=== PATIENT | male | born 1970 ===

== ENCOUNTER 2017-10-05 08:12 | Inpatient (IN) | payer MEDICAID, OTHER ==
[2017-10-05 08:42] VITALS: BMI 35.2
--- NOTE | 2017-10-05 09:40 | C.PDOC ---
History Of Present Illness Patient reports history og alcohol abuse and drinking a lot over the past few months. Patient requesting detox. Patient has recurrent right nose bleed for weeks. Time Seen by Provider: 10/05/17 08:53 Chief Complaint (Nursing): ENT Problem History Per: Patient History/Exam Limitations: language barrier Current Symptoms Are (Timing): Still Present Suicide/Self Injury Attempted (Context): None Severity: Mild Involuntary Hold By: None Recent travel outside of the [place]: No Past Medical History Reviewed: Historical Data, Nursing Documentation, Vital Signs Vital Signs: Last Vital Signs Temp 98.0 F 10/05/17 11:20 Pulse 94 H 10/05/17 11:20 Resp 18 10/05/17 11:20 BP 164/80 H 10/05/17 11:20 Pulse Ox 98 10/05/17 14:21 - Medical History PMH: No Chronic Diseases Other PMH: alcohol abuse Surgical History: No Surg Hx Family History: States: No Known Family Hx - Social History Hx Alcohol Use: Yes Hx Substance Use: No - Immunization History Hx Tetanus Toxoid Vaccination: No Hx Influenza Vaccination: No Hx Pneumococcal Vaccination: No Review Of Systems Constitutional: Positive for: Weakness. Negative for: Fever ENT: Positive for: Nose Discharge (blood from right nare) Cardiovascular: Negative for: Chest Pain Respiratory: Negative for: Shortness of Breath Gastrointestinal: Negative for: Abdominal Pain Skin: Negative for: Rash Neurological: Positive for: Weakness Psych: Positive for: Withdrawal Physical Exam - Physical Exam Appears: No Acute Distress, Unkempt, Other (shaking) Skin: Normal Color, Warm Head: Atraumatic, Normacephalic Nose: Other (dried blood right nare) Tongue: Normal Appearing Lips: Normal Appearing Gingiva: Normal Appearing Chest: Symmetrical Cardiovascular: Rhythm Regular Respiratory: Normal Breath Sounds Gastrointestinal/Abdominal: Normal Exam, No Tenderness Extremity: Normal ROM Neurological/Psych: Oriented x3 Gait: Steady ED Course And Treatment - Laboratory Results Result Diagrams: 10/05/17 10:27 10/05/17 10:27 Lab Interpretation: Abnormal ECG: Interpreted By Me ECG Rhythm: Sinus Rhythm ECG Interpretation: No Acute Changes Rate From EC O2 Sat by Pulse Oximetry: 98 Pulse Ox Interpretation: Normal Progress Note: Treated with IVF NSS x2 liters. Treated with librium 25 mg PO. On re-evaluation patient continues to have tremors Reassessment Condition: Unchanged - Physician Consult Information Physician Contacted: Valentín Gillespie Outcome Of Conversation: admit Disposition Discussed With Dr.: Valentín Gillespie Doctor Will See Patient In The: Hospital - Disposition Disposition: HOSPITALIZED Disposition Time: 13:45 Condition: STABLE Instructions: Alcohol Abuse and Alcoholism (DC), Alcohol Withdrawal (ED) Forms: VTM (Vietnamese) - POA Present On Arrival: None - Clinical Impression Clinical Impression: Alcohol withdrawal, Alcohol abuse Decision To Admit - Pt Status Changed To: Hospital Disposition Of: Inpatient - Admit Certification Admit to Inpatient:: After my assessment, the patient will require hospitalization for at least two midnights. This is because of the severity of symptoms shown, intensity of services needed, and/or the medical risk in this patient being treated as an outpatient. - InPatient: Physician Admission Certification: I certify that this patient requires 2 or more midnights of care for the following reason:: alcohol abuse. Alcohol Withdrawl - . Bed Request Type: Regular Admitting Physician: Valentín Gillespie Patient Diagnosis: Alcohol withdrawal, Alcohol abuse
[2017-10-05 10:43] LABS: INR 1.2; PROTHROMBIN TIME 13.8 SECONDS (9.7-12.2)
[2017-10-05 10:49] LABS: BASO % 0.4 % (0.0-2.0); EOS # 0.1 K/uL (0.0-0.7); EOS % 0.8 % (0.0-4.0); HEMOGLOBIN 14.5 g/dL (12.0-18.0); LYMPH # 0.6 K/uL (1.0-4.3); LYMPH % 5.9 % (20.0-40.0); MEAN CELL VOLUME 96.9 fL (80.0-94.0); MEAN CORPUSCULAR HEMOGLOBIN 34.6 pg (27.0-31.0); MEAN CORPUSCULAR HGB CONC 35.7 g/dL (33.0-37.0); MEAN PLATELET VOLUME 8.4 fL (7.2-11.7); MONO # 0.6 K/uL (0.0-0.8); MONO % 5.4 % (0.0-10.0); NEUT # 8.9 K/uL (1.8-7.0); NEUT % 87.5 % (50.0-75.0); RBC 4.18 Mil/uL (4.40-5.90); RED CELL DISTRIBUTION WIDTH 12.4 % (11.5-14.5); WHITE BLOOD COUNT 10.2 K/uL (4.8-10.8)
[2017-10-05 10:53] LABS: PLATELET COUNT 63 K/uL (130-400)
[2017-10-05] MEDS ORDERED: Sodium Chloride 0.9% 1,000 ML ONE (10:59)
[2017-10-05 11:04] LABS: ALB/GLOB RATIO 1.1 (1.0-2.1); ALBUMIN 4.4 g/dL (3.5-5.0); ALT/SGPT 42 U/L (21-72); AST/SGOT 193 U/L (17-59); BLOOD UREA NITROGEN 5 mg/dL (9-20); CALCIUM 8.9 mg/dl (8.6-10.4); GFR AFRICAN-AMERICAN > 60; GFR NON-AFRICAN AMERICAN > 60; LIPASE 106 U/L (23-300)
[2017-10-05 11:14] LABS: EOSINOPHIL 3 % (0-4); LYMPHOCYTE 5 % (20-40); MONOCYTE 5 % (0-10); NEUTROPHIL 87 % (50-75); TOTAL CELLS COUNTED 100
[2017-10-05 11:15] LABS: PLATELET ESTIMATE DECREASED (NORMAL)
[2017-10-05 11:20] LABS: SQUAMOUS EPITHIAL < 1 /hpf (0-5); URINE BILIRUBIN NEGATIVE (NEGATIVE); URINE BLOOD NEGATIVE (NEGATIVE); URINE CLARITY Clear (Clear); URINE COLOR Amber (YELLOW); URINE GLUCOSE (UA) 1+ mg/dL (Normal); URINE LEUKOCYTE ESTERASE NEG Leu/uL (Negative); URINE NITRATE NEGATIVE (NEGATIVE); URINE PROTEIN 2+ mg/dL (NEGATIVE)
[2017-10-05] MEDS ORDERED: Sodium Chloride 0.9% 1,000 ML IV ONE (11:23)
--- NOTE | 2017-10-05 11:57 | RAD ---
HISTORY: Cough r/o CHF COMPARISON: None available. TECHNIQUE: Chest PA and lateral FINDINGS: Examination limited by habitus. LUNGS: No focal consolidation. Please note that chest x-ray has limited sensitivity for the detection of pulmonary masses. PLEURA: No significant pleural effusion identified. No definite pneumothorax . CARDIOVASCULAR: Heart size appears top normal. OSSEOUS STRUCTURES: Degenerative changes of the spine. VISUALIZED UPPER ABDOMEN: Unremarkable. OTHER FINDINGS: None. IMPRESSION: No focal consolidation identified.
[2017-10-05] MEDS ORDERED: Potassium Chloride 20 mEq ER Tab PO ONE ×3 (14:04→18:00)
--- NOTE | 2017-10-05 14:24 | CP.PCM.HP ---
Addendum entered and electronically signed by Choco Mistry DO 10/05/17 14:45: addition: Hypokalemia currently 3.0; will replete with a total of 80meq today will monitor daily on bloodwork Original Note: <Choco Mistry - Last Filed: 10/05/17 14:38> History of Present Illness - History of Present Illness History of Present Illness: CC: "I want detox" This a 47yo [place] M who is presenting to the ED requesting EtOH detox; the patient states for the past 6 months he has been taking 6 shots of tequila as well as 4-6 beers daily. He has never had EtOH withdrawal seizures to his knowledge, and has never withdrawn before in the past. He states at work yesterday, he developed a nose bleed that would not stop that they sent him home for; denies any loss of consciousness, falling, any obvious signs of trauma , pain, hallucinations (visual/tactile), SOB, abdominal pain, N/V/D, dysuria/ freq/urg, or lower extremity pain swelling PMD: None PMhx: Denies; although has not f/u with MD in many years Allergies: Denies Meds: Denies FamHx: denies Surgeries: Denies Social: works in restaurant, independent in all IADL and ADL; states he drinks as stated above, denies other drug use. Speaks mostly anguillan. Lives with family. Present on Admission - Present on Admission Any Indicators Present on Admission: No History of DVT/PE: No History of Uncontrolled Diabetes: No Urinary Catheter: No Decubitus Ulcer Present: No Past Patient History - Past Social History Smoking Status: Never Smoked - CARDIAC Hx Hypertension: No (denies) - PSYCHIATRIC Hx Substance Use: No - SURGICAL HISTORY Hx Surgeries: No - ANESTHESIA Hx Anesthesia: No Meds Allergies/Adverse Reactions: Allergies Allergy/AdvReac Type Severity Reaction Status Date / Time No Known Allergies Allergy Verified 10/05/17 08:37 Physical Exam - Constitutional Appears: Non-toxic, No Acute Distress (blood dried nares) - Eye Exam Eye Exam: EOMI, PERRL. absent: Scleral icterus - ENT Exam ENT Exam: Mucous Membranes Moist (diaphoretic ) - Neck Exam Neck exam: Positive for: Full Rom. Negative for: Lymphadenopathy - Respiratory Exam Respiratory Exam: Clear to Auscultation Bilateral, NORMAL BREATHING PATTERN. absent: Rales, Rhonchi, Wheezes - Cardiovascular Exam Cardiovascular Exam: REGULAR RHYTHM, +S1, +S2 - GI/Abdominal Exam GI & Abdominal Exam: Normal Bowel Sounds, Soft - Extremities Exam Extremities exam: Positive for: full ROM. Negative for: calf tenderness - Back Exam Back exam: absent: CVA tenderness (L), CVA tenderness (R) - Neurological Exam Neurological exam: Alert, CN II-XII Intact (tremulous, diaphoretic), Oriented x3 , Reflexes Normal - Psychiatric Exam Psychiatric exam: Normal Affect - Skin Skin Exam: Warm Results - Vital Signs Recent Vital Signs: Last Vital Signs Temp 98.0 F 10/05/17 11:20 Pulse 94 H 10/05/17 11:20 Resp 18 10/05/17 11:20 BP 164/80 H 10/05/17 11:20 Pulse Ox 98 10/05/17 14:21 - Labs Result Diagrams: 10/05/17 10:27 10/05/17 10:27 Labs: Laboratory Results - last 24 hr 10/05/17 10/05/17 10/05/17 10:27 10:27 10:27 WBC 10.2 RBC 4.18 L Hgb 14.5 Hct 40.5 MCV 96.9 H MCH 34.6 H MCHC 35.7 RDW 12.4 Plt Count 63 L MPV 8.4 Neut % (Auto) 87.5 H Lymph % (Auto) 5.9 L [place] % (Auto) 5.4 Eos % (Auto) 0.8 Baso % (Auto) 0.4 Neut # (Auto) 8.9 H Lymph # (Auto) 0.6 L [place] # (Auto) 0.6 Eos # (Auto) 0.1 Baso # (Auto) 0.0 Neutrophils % (Manual) 87 H Lymphocytes % (Manual) 5 L Monocytes % (Manual) 5 Eosinophils % (Manual) 3 Platelet Estimate Decreased L RBC Morphology Normal PT 13.8 H INR 1.2 Sodium 138 Potassium 3.0 L Chloride 98 Carbon Dioxide 21 L Anion Gap 22 H BUN 5 L Creatinine 0.4 L Est GFR ( Amer) > 60 Est GFR (Non-Af Amer) > 60 Random Glucose 108 Calcium 8.9 Total Bilirubin 1.0 AST 193 H ALT 42 Alkaline Phosphatase 159 H Total Protein 8.5 H Albumin 4.4 Globulin 4.1 H Albumin/Globulin Ratio 1.1 Lipase 106 Urine Color Urine Clarity Urine pH Ur Specific [place] Urine Protein Urine Glucose (UA) Urine Ketones Urine Blood Urine Nitrate Urine Bilirubin Urine Urobilinogen Ur Leukocyte Esterase Urine WBC (Auto) Urine RBC (Auto) Ur Squamous Epith Cells Hyaline Casts Alcohol, Quantitative 52 H 10/05/17 11:03 WBC RBC Hgb Hct MCV MCH MCHC RDW Plt Count MPV Neut % (Auto) Lymph % (Auto) [place] % (Auto) Eos % (Auto) Baso % (Auto) Neut # (Auto) Lymph # (Auto) [place] # (Auto) Eos # (Auto) Baso # (Auto) Neutrophils % (Manual) Lymphocytes % (Manual) Monocytes % (Manual) Eosinophils % (Manual) Platelet Estimate RBC Morphology PT INR Sodium Potassium Chloride Carbon Dioxide Anion Gap BUN Creatinine Est GFR ( Amer) Est GFR (Non-Af Amer) Random Glucose Calcium Total Bilirubin AST ALT Alkaline Phosphatase Total Protein Albumin Globulin Albumin/Globulin Ratio Lipase Urine Color [place] Urine Clarity Clear Urine pH 5.0 Ur Specific [place] 1.023 Urine Protein 2+ H Urine Glucose (UA) 1+ H Urine Ketones 2+ H Urine Blood Negative Urine Nitrate Negative Urine Bilirubin Negative Urine Urobilinogen 2.0 Ur Leukocyte Esterase Neg Urine WBC (Auto) 2 Urine RBC (Auto) 1 Ur Squamous Epith Cells < 1 Hyaline Casts 3-5 H Alcohol, Quantitative Assessment & Plan - Assessment and Plan (Free Text) Assessment: 47yo M admitted to the hospital for EtOH withdrawal and requesting detox EtOH Withdrawal -Librium Q8H RAMAKRISHNA Taper -Ativan PRN Q3H -Thiamine/Folate Daily -CIWA protocol -patient desires to quit drinking; states drinks 5-6 shots a day as well as 3-4 beers; last drink 24 hours ago -f/u Psych Recs: Dr. Hernandez; thank you for your help Thrombocytopenia 2/2 to EtOH abuse/toxicity -platelets currently 60k; would expect to rise after no EtOH -will monitor daily Prophylaxis -f/u fasting blood work; HgB1C, RPR, Hepatitis Panel, Lipid Panel, mag and phosh -Pepcid PO BID -SCD 2/2 to thrombocytopenia -Heart Healthy Diet -PT/OT eval and treat Case discussed and seen with Dr. Gillespie Decision To Admit - Pt Status Changed To: Hospital Disposition Of: Inpatient - Admit Certification Admit to Inpatient:: After my assessment, the patient will require hospitalization for at least two midnights. This is because of the severity of symptoms shown, intensity of services needed, and/or the medical risk in this patient being treated as an outpatient. - InPatient: Physician Admission Certification:: pt needs more than 2 midnights - . Bed Request Type: Telemetry Admitting Physician: Valentín Gillespie <Valentín Gillespie - Last Filed: 10/05/17 16:29> Results - Vital Signs Recent Vital Signs: Last Vital Signs Temp 98.6 F 10/05/17 15:00 Pulse 94 H 10/05/17 15:00 Resp 18 10/05/17 15:00 BP 167/88 H 10/05/17 15:00 Pulse Ox 98 10/05/17 15:00 - Labs Result Diagrams: 10/05/17 10:27 10/05/17 10:27 Labs: Laboratory Results - last 24 hr 10/05/17 10/05/17 10/05/17 10:27 10:27 10:27 WBC 10.2 RBC 4.18 L Hgb 14.5 Hct 40.5 MCV 96.9 H MCH 34.6 H MCHC 35.7 RDW 12.4 Plt Count 63 L MPV 8.4 Neut % (Auto) 87.5 H Lymph % (Auto) 5.9 L [place] % (Auto) 5.4 Eos % (Auto) 0.8 Baso % (Auto) 0.4 Neut # (Auto) 8.9 H Lymph # (Auto) 0.6 L [place] # (Auto) 0.6 Eos # (Auto) 0.1 Baso # (Auto) 0.0 Neutrophils % (Manual) 87 H Lymphocytes % (Manual) 5 L Monocytes % (Manual) 5 Eosinophils % (Manual) 3 Platelet Estimate Decreased L RBC Morphology Normal PT 13.8 H INR 1.2 Sodium 138 Potassium 3.0 L Chloride 98 Carbon Dioxide 21 L Anion Gap 22 H BUN 5 L Creatinine 0.4 L Est GFR ( Amer) > 60 Est GFR (Non-Af Amer) > 60 Random Glucose 108 Calcium 8.9 Phosphorus Magnesium Total Bilirubin 1.0 AST 193 H ALT 42 Alkaline Phosphatase 159 H Total Protein 8.5 H Albumin 4.4 Globulin 4.1 H Albumin/Globulin Ratio 1.1 Lipase 106 Urine Color Urine Clarity Urine pH Ur Specific [place] Urine Protein Urine Glucose (UA) Urine Ketones Urine Blood Urine Nitrate Urine Bilirubin Urine Urobilinogen Ur Leukocyte Esterase Urine WBC (Auto) Urine RBC (Auto) Ur Squamous Epith Cells Hyaline Casts Urine Opiates Screen Urine Methadone Screen Ur Barbiturates Screen Ur Phencyclidine Scrn Ur Amphetamines Screen U Benzodiazepines Scrn U Oth Cocaine Metabols U Cannabinoids Screen Alcohol, Quantitative 52 H 10/05/17 10/05/17 10/05/17 11:03 15:12 15:15 WBC RBC Hgb Hct MCV MCH MCHC RDW Plt Count MPV Neut % (Auto) Lymph % (Auto) [place] % (Auto) Eos % (Auto) Baso % (Auto) Neut # (Auto) Lymph # (Auto) [place] # (Auto) Eos # (Auto) Baso # (Auto) Neutrophils % (Manual) Lymphocytes % (Manual) Monocytes % (Manual) Eosinophils % (Manual) Platelet Estimate RBC Morphology PT INR Sodium Potassium Chloride Carbon Dioxide Anion Gap BUN Creatinine Est GFR ( Amer) Est GFR (Non-Af Amer) Random Glucose Calcium Phosphorus 3.7 Magnesium 1.9 Total Bilirubin AST ALT Alkaline Phosphatase Total Protein Albumin Globulin Albumin/Globulin Ratio Lipase Urine Color [place] Urine Clarity Clear Urine pH 5.0 Ur Specific [place] 1.023 Urine Protein 2+ H Urine Glucose (UA) 1+ H Urine Ketones 2+ H Urine Blood Negative Urine Nitrate Negative Urine Bilirubin Negative Urine Urobilinogen 2.0 Ur Leukocyte Esterase Neg Urine WBC (Auto) 2 Urine RBC (Auto) 1 Ur Squamous Epith Cells < 1 Hyaline Casts 3-5 H Urine Opiates Screen Negative Urine Methadone Screen Negative Ur Barbiturates Screen Negative Ur Phencyclidine Scrn Negative Ur Amphetamines Screen Negative U Benzodiazepines Scrn Negative U Oth Cocaine Metabols Negative U Cannabinoids Screen Negative Alcohol, Quantitative Attending/Attestation - Attestation I have personally seen and examined this patient.: Yes I have fully participated in the care of the patient.: Yes I have reviewed all pertinent clinical information: Yes Notes (Text): 10/05/17 16:28 Medical attending: Patient was seen and examined by me, agrees the above note by medical staff coordinator. In the emergency room he already received Librium 25. When I came and saw him in hallway to still having some tremors and shakes regularly and so we gave a stat dose of IV Ativan now, working at continue with alcohol CIWAl protocol. Working to keep the patient on when necessary Ativan as needed as well The electrolytes are going to need to be replaced in particular potassium and magnesium. The thrombocytopenia is likely secondary from a history of long drinking as alcohol can be toxic to the bone marrow as well as inhibited the formation of thrombopoietin thank you Valentín Glilespie 10/05/17 16:28
[2017-10-05 15:25] LABS: MAGNESIUM 1.9 mg/dL (1.6-2.3)
[2017-10-05 15:36] LABS: BARBITURATES, UR NEGATIVE (NEGATIVE); BENZODIAZEPINES, UR NEGATIVE (NEGATIVE); OPIATES, UR NEGATIVE (NEGATIVE); PHENCYCLIDINE, UR NEGATIVE (NEGATIVE)
[2017-10-06 07:06] LABS: BASO # 0.1 K/uL (0.0-0.2); BASO % 1.1 % (0.0-2.0); EOS # 0.4 K/uL (0.0-0.7); EOS % 4.9 % (0.0-4.0); LYMPH # 0.9 K/uL (1.0-4.3); LYMPH % 11.2 % (20.0-40.0); MEAN CELL VOLUME 96.4 fL (80.0-94.0); MEAN CORPUSCULAR HEMOGLOBIN 34.3 pg (27.0-31.0); MEAN CORPUSCULAR HGB CONC 35.6 g/dL (33.0-37.0); MEAN PLATELET VOLUME 8.4 fL (7.2-11.7); MONO # 0.5 K/uL (0.0-0.8); MONO % 6.4 % (0.0-10.0); NEUT # 5.9 K/uL (1.8-7.0); NEUT % 76.4 % (50.0-75.0); RBC 4.1 Mil/uL (4.40-5.90); RED CELL DISTRIBUTION WIDTH 12.7 % (11.5-14.5); WHITE BLOOD COUNT 7.7 K/uL (4.8-10.8)
--- NOTE | 2017-10-06 07:12 | CP.PCM.PN ---
Addendum entered and electronically signed by Janett Story 10/06/17 14:23: Hypokalemia on admission resolved Original Note: <Janett Story - Last Filed: 10/06/17 14:22> Subjective - Date & Time of Evaluation Date of Evaluation: 10/06/17 Time of Evaluation: 07:45 - Subjective Subjective: Medicine note progress (Dr. Gillespie' Service) Patient was seen and examined at bedside. Patient states that he feels better. Patient admits to mild substernal chest pain but denies SOB, palpitations, dizziness, fever, chills, nausea, vomiting, abdominal pain, diarrhea, visual hallucination and auditory hallucination. Objective - Vital Signs/Intake and Output Vital Signs (last 24 hours): Temp Pulse Resp BP Pulse Ox 97.9 F 87 20 153/84 H 97 10/06/17 00:00 10/06/17 00:00 10/06/17 00:00 10/06/17 00:00 10/06/17 00:00 Intake and Output: 10/06/17 10/06/17 06:59 18:59 Intake Total 180 Balance 180 - Medications Medications: Current Medications Acetaminophen (Tylenol 325mg Tab) 650 mg PO Q6 PRN PRN Reason: Fever >100.4 F Chlordiazepoxide (Librium) 25 mg PO Q6H [facility] PRN Reason: Taper Stop: 10/08/17 14:03 Last Admin: 10/06/17 01:40 Dose: 25 mg Famotidine (Pepcid) 20 mg PO BID [facility] Last Admin: 10/05/17 17:46 Dose: 20 mg Folic Acid (Folic Acid) 1 mg PO DAILY [facility] Ibuprofen (Motrin Tab) 400 mg PO Q6 PRN PRN Reason: Pain, Mild (1-3) Ondansetron HCl (Zofran Inj) 4 mg IVP Q6 PRN PRN Reason: Nausea/Vomiting Thiamine HCl (Vitamin B1 Tab) 100 mg PO DAILY [facility] - Labs Labs: 10/05/17 10:27 10/05/17 10:27 PT 13.8 SECONDS (9.7-12.2) H 10/05/17 10:27 INR 1.2 10/05/17 10:27 - Constitutional Appears: Well, No Acute Distress - Head Exam Head Exam: ATRAUMATIC, NORMAL INSPECTION - Eye Exam Eye Exam: EOMI - Respiratory Exam Respiratory Exam: Clear to Ausculation Bilateral, NORMAL BREATHING PATTERN. absent: Prolonged Expiratory Phase, Wheezes - Cardiovascular Exam Cardiovascular Exam: REGULAR RHYTHM, +S1, +S2 - GI/Abdominal Exam GI & Abdominal Exam: Soft, Normal Bowel Sounds. absent: Distended, Firm, Guarding, Rigid, Tenderness - Extremities Exam Extremities Exam: Normal Inspection. absent: Calf Tenderness, Pedal Edema - Neurological Exam Neurological Exam: Alert, Awake, Oriented x3 Additional comments: Tremulous - Psychiatric Exam Psychiatric exam: Anxious - Skin Skin Exam: Normal Color Assessment and Plan (1) Alcohol withdrawal Assessment & Plan: Psychiatry Consult, Dr. Hernandez---> Help appreciated * Management as per recommendation * Ativan taper * Ativan 1mg PO q6 * Imodium 2mg PO q8h prn for symptoms of diarrhea * Zofran 4mg PO Q8H prn for nausea Management: -WA protocol -Folic 1 tab PO daily -Thiamine 100mg PO daily - Monitor withdrawal symptoms - UDS: Negative Status: Acute (2) Chest pain Assessment & Plan: Resolved EKG: Sinus Tachy with T-wave inversion lead III Troponin negative X1, F/U 2nd troponin Hold aspirin due to Thrombocytopneia Status: Acute (3) Thrombocytopenia Assessment & Plan: On admission 63-50L Continue to monitor, if no improvement by the time for discharge, recommendation for hematology and oncology consult H/H stable; no sign of active bleeding Status: Acute (4) Encounter for screening and preventative care Assessment & Plan: HgbA1C: 5.4 Lipid panel: TGL: 110, Cholesterol: 237, LDL: 114 and HDL: 95 Hepatitis and HIV: Negative Awaiting RPR Status: Acute (5) Prophylactic measure Assessment & Plan: GI: Pepcid 20mg PO BID DVT: SCDs, Anticoagualtion contraindicated due to acute thrombocyopneia All plans and management discussed with attending, Dr. Gillespie Status: Acute <Valentín Gillespie - Last Filed: 10/06/17 15:50> Objective - Vital Signs/Intake and Output Vital Signs (last 24 hours): Temp Pulse Resp BP Pulse Ox 98.2 F 89 20 138/85 98 10/06/17 07:52 10/06/17 11:00 10/06/17 07:52 10/06/17 11:00 10/06/17 11:00 Intake and Output: 10/06/17 10/06/17 06:59 18:59 Intake Total 180 450 Balance 180 450 - Medications Medications: Current Medications Acetaminophen (Tylenol 325mg Tab) 650 mg PO Q6 PRN PRN Reason: Fever >100.4 F Famotidine (Pepcid) 20 mg PO BID [facility] Last Admin: 10/06/17 10:32 Dose: 20 mg Folic Acid (Folic Acid) 1 mg PO DAILY [facility] Last Admin: 10/06/17 10:32 Dose: 1 mg Ibuprofen (Motrin Tab) 400 mg PO Q6 PRN PRN Reason: Pain, Mild (1-3) Loperamide HCl (Imodium) 2 mg PO Q8 PRN PRN Reason: Diarrhea Lorazepam (Ativan) 1 mg PO Q6 [facility] PRN Reason: Taper Stop: 10/10/17 10:14 Last Admin: 10/06/17 12:18 Dose: 1 mg Lorazepam (Ativan) 1 mg PO Q4H PRN PRN Reason: Symptoms of alcohol withdrawl Ondansetron HCl (Zofran Inj) 4 mg IVP Q6 PRN PRN Reason: Nausea/Vomiting Ondansetron HCl (Zofran Tab) 4 mg PO Q8 PRN PRN Reason: Nausea/Vomiting Pneumococcal Polyvalent Vaccine (Pneumovax 23 Vaccine) 0.5 ml IM .ONCE ONE Stop: 10/08/17 10:01 Thiamine HCl (Vitamin B1 Tab) 100 mg PO DAILY [facility] Last Admin: 10/06/17 10:32 Dose: 100 mg - Labs Labs: 10/06/17 06:56 10/06/17 06:56 PT 13.8 SECONDS (9.7-12.2) H 10/05/17 10:27 INR 1.2 10/05/17 10:27 Attending/Attestation - Attestation I have personally seen and examined this patient.: Yes I have fully participated in the care of the patient.: Yes I have reviewed all pertinent clinical information, including history, physical exam and plan: Yes Notes (Text): 10/06/17 15:50 Medical attending: Patient was seen and examined by me, agrees the above note by the medical imaging technologist. The patient was not in any acute distress when we saw him on rounds. There was report of chest pain earlier and an EKG was done - I looked at it and it showed NSR, the only change was one lead with a T wave inversion. We will need cardiac enzymes. In the mean time we are continuing with the ativan taper as by psychiatry. When we asked the patient about tremors - he reported it is still there however not as severe as yesterday. He denied abdominal pain, denied diarrhea. He is tolerating a diet So we will follow patient. Replace K and Mg as needed. Thank you very much, Valentín Gillespie
[2017-10-06 07:37] LABS: ALB/GLOB RATIO 1.1 (1.0-2.1); ALBUMIN 4.1 g/dL (3.5-5.0); ALT/SGPT 40 U/L (21-72); AST/SGOT 125 U/L (17-59); BLOOD UREA NITROGEN 6 mg/dL (9-20); CALCIUM 9.5 mg/dl (8.6-10.4); GFR AFRICAN-AMERICAN > 60; GFR NON-AFRICAN AMERICAN > 60; HDL CHOLESTEROL 95 mg/dL (30-70)
[2017-10-06 07:41] LABS: LDL CHOLESTEROL 114 mg/dL (0-129)
[2017-10-06 08:08] LABS: HEPATITIS B SURFACE AG Negative (NEGATIVE)
[2017-10-06 08:17] LABS: HEPATITIS A IGM NEGATIVE (NEGATIVE); HEPATITIS B CORE AB NEGATIVE (NEGATIVE)
[2017-10-06 08:26] LABS: HEPATITIS C ANTIBODY NEGATIVE (NEGATIVE)
--- NOTE | 2017-10-06 12:16 | PCM.PSYCH ---
Initial Psychiatric Evaluation - Initial Psychiatric Evaluation Type of Admission: Voluntary Legal Status: Capacity Chief Complaint (in patient's own words): "I have pain" History of Present Illness and Precipitating Events: Patient is a 47 year old male who is currently employed at a [employer] and lives with his girlfriend and 2 young children. The patient reports that he came to the hospital because he suffered a nose bleed and started feeling unwell at the grocery store. Patient describes left sided substernal pain beginning recently. He reports that he typically drinks 4-5 shots of tequila and 4-6 beers a day beginning 5 years ago. He reports that he stopped drinking 1 week ago and has been not feeling well and experiencing tremors since he has stopped. The patient denies history of seizures. The patient reports that he is also feeling depressed but has no thoughts to kill himself. The patient denies the use of drugs and tobacco but reports that all of his friends use drugs, smoke, and drink. The patient reports that he has never been to detox or rehab. Medical Hx: denies Psych Hx: denies Medications: denies Psych Hospitalization: denies Detox: denies Rehab: denies Fam Psych Hx: denies Fam Substance abuse hx: "my family drinks liquor" Current Medications: Active Medications Generic Name Dose Route Start Last Admin Trade Name Freq PRN Reason Stop Dose Admin Acetaminophen 650 mg 10/05/17 14:01 Tylenol 325mg Tab PO Q6 PRN Fever >100.4 F Famotidine 20 mg 10/05/17 18:00 10/06/17 10:32 Pepcid PO 20 mg BID RAMAKRISHNA Administration Folic Acid 1 mg 10/06/17 10:00 10/06/17 10:32 Folic Acid PO 1 mg DAILY RAMAKRISHNA Administration Ibuprofen 400 mg 10/05/17 14:01 Motrin Tab PO Q6 PRN Pain, Mild (1-3) Loperamide HCl 2 mg 10/06/17 10:04 Imodium PO Q8 PRN Diarrhea Lorazepam 1 mg 10/06/17 10:15 Ativan PO 10/10/17 10:14 Q6 RAMAKRISHNA Taper Lorazepam 1 mg 10/06/17 10:10 Ativan PO Q4H PRN Symptoms of alcohol withdrawl Ondansetron HCl 4 mg 10/05/17 14:01 Zofran Inj IVP Q6 PRN Nausea/Vomiting Ondansetron HCl 4 mg 10/06/17 10:04 Zofran Tab PO Q8 PRN Nausea/Vomiting Thiamine HCl 100 mg 10/06/17 10:00 10/06/17 10:32 Vitamin B1 Tab PO 100 mg DAILY RAMAKRISHNA Administration Past Psychiatric History - Past Psychiatric History Pertinent Medical Hx (Current Medical&Sleep Prob, Allergies): Allergies Allergy/AdvReac Type Severity Reaction Status Date / Time No Known Allergies Allergy Verified 10/05/17 08:37 No Known Home Med 10/05/17 Review of Systems - Gastrointestinal Gastrointestinal: Abdominal Pain Additional comments: substernal pain, left sided - Neurological Neurological: Tremor - Psychiatric Psychiatric: Depression. absent: Auditory Hallucinations, Hallucinations, Suicidal Ideation Mental Status Examination - Personal Presentation Personal Presentation: Looks stated age - Affect Affect: Constricted - Motor Activity Motor Activity: Calm - Reliability in Providing Information Reliability in Providing Information: Fair - Speech Speech: Organized - Mood Mood: Depressed - Formal Thought Process Formal Thought Process: No Impairment - Obsessions/Compulsions Obsessions: None Compulsions: None - Cognitive Functions Orientation: Person, Place, Situation, Time Sensorium: Alert Attention/Concentration: Attentive Abstract Thinking: [place] Estimate of Intelligence: Average Judgement: Intact, as evidence by: Insight regarding need for hospitalization Memory: Recent intact, as evidence by: Ability to recall events of the day, Remote intact, as evidenced by: Abilit to recall sig. life events - Risk Risk: Seizure, Withdrawal - Strength & Assets Inventory Strength & Assets Inventory: Family support, Employment status, Cooperative DSM 5 DX - DSM 5 DSM 5 Diagnosis: Alcohol Use Disorder - Severe Alcohol Withdrawal Major Depression - Recommended/Plan of Treatment Treatment Recommendations and Plan of Treatment: -Alcohol detox with Librium -Vitamins for nutrition -As needed medications -All risks, benefits and alternatives of the meds discussed, and the pt agreed and understood. -Individual therapy daily -Supportive therapy and psychoeducation -MT for abstinence -CBT for relapse prevention -Encourage MAT -Refer to rehab or IOP, and self-help groups -Teach healthy lifestyle methods, i.e. diet, exercise, meditation Prognosis: good with treatment - Smoking Cessation Smoking Cessation Initiated: No Reason for not providing: Pt denies smoking
[2017-10-06 12:29] LABS: CK-MB 0.38 ng/mL (0.0-3.38)
[2017-10-06 17:40] LABS: CK-MB 0.39 ng/mL (0.0-3.38)
[2017-10-07 07:20] LABS: BASO % 0.4 % (0.0-2.0); EOS # 0.2 K/uL (0.0-0.7); EOS % 1.7 % (0.0-4.0); HEMOGLOBIN 14.7 g/dL (12.0-18.0); LYMPH # 0.9 K/uL (1.0-4.3); LYMPH % 8.4 % (20.0-40.0); MEAN CELL VOLUME 95.9 fL (80.0-94.0); MEAN CORPUSCULAR HEMOGLOBIN 34.9 pg (27.0-31.0); MEAN CORPUSCULAR HGB CONC 36.4 g/dL (33.0-37.0); MEAN PLATELET VOLUME 8.9 fL (7.2-11.7); MONO # 0.6 K/uL (0.0-0.8); MONO % 6.2 % (0.0-10.0); NEUT # 8.6 K/uL (1.8-7.0); NEUT % 83.3 % (50.0-75.0); NRBC % 0.1 % (0.0-2.0); PLATELET COUNT 63 K/uL (130-400); RED CELL DISTRIBUTION WIDTH 12.3 % (11.5-14.5); WHITE BLOOD COUNT 10.3 K/uL (4.8-10.8)
[2017-10-07 07:55] LABS: ALBUMIN 4.4 g/dL (3.5-5.0); ALT/SGPT 39 U/L (21-72); AST/SGOT 121 U/L (17-59); BLOOD UREA NITROGEN 7 mg/dL (9-20); CALCIUM 9.8 mg/dl (8.6-10.4); GFR AFRICAN-AMERICAN > 60; GFR NON-AFRICAN AMERICAN > 60; MAGNESIUM 1.5 mg/dL (1.6-2.3)
[2017-10-07 09:32] LABS: EOSINOPHIL 2 % (0-4); LYMPHOCYTE 7 % (20-40); MONOCYTE 5 % (0-10); NEUTROPHIL 86 % (50-75); PLATELET ESTIMATE DECREASED (NORMAL); TOTAL CELLS COUNTED 100
[2017-10-07] MEDS ORDERED: DiphenhydrAMINE 50 mg/ml Inj IVP STA (10:35)
[2017-10-07] MEDS ORDERED: DiphenhydrAMINE 50 mg/ml Inj ONE (10:37)
--- NOTE | 2017-10-07 11:07 | CP.PCM.PN ---
<Cindy Haskins - Last Filed: 10/07/17 11:03> Subjective - Date & Time of Evaluation Date of Evaluation: 10/07/17 Time of Evaluation: 11:04 - Subjective Subjective: Patient seen and examined at bedside. Patient was hallucinating overnight per nursing. He was given ativan at midnight and again this morning around 8am. Patient still agitated and thinks he is in [facility], but he does know his name. Difficult to obtain ROS due to patient status. Objective - Vital Signs/Intake and Output Vital Signs (last 24 hours): Temp Pulse Resp BP Pulse Ox 97.3 F L 104 H 20 158/98 H 97 10/06/17 15:00 10/06/17 15:00 10/06/17 15:00 10/06/17 15:00 10/06/17 15:00 Intake and Output: 10/07/17 10/07/17 06:59 18:59 Intake Total 580 Balance 580 - Medications Medications: Current Medications Acetaminophen (Tylenol 325mg Tab) 650 mg PO Q6 PRN PRN Reason: Fever >100.4 F Chlordiazepoxide (Librium) 50 mg PO TID [facility] Famotidine (Pepcid) 20 mg PO BID [facility] Last Admin: 10/07/17 09:06 Dose: 20 mg Folic Acid (Folic Acid) 1 mg PO DAILY [facility] Last Admin: 10/07/17 09:06 Dose: 1 mg Ibuprofen (Motrin Tab) 400 mg PO Q6 PRN PRN Reason: Pain, Mild (1-3) Loperamide HCl (Imodium) 2 mg PO Q8 PRN PRN Reason: Diarrhea Lorazepam (Ativan) 3 mg IVP Q3H [facility] Ondansetron HCl (Zofran Inj) 4 mg IVP Q6 PRN PRN Reason: Nausea/Vomiting Ondansetron HCl (Zofran Tab) 4 mg PO Q8 PRN PRN Reason: Nausea/Vomiting Pneumococcal Polyvalent Vaccine (Pneumovax 23 Vaccine) 0.5 ml IM .ONCE ONE Stop: 10/08/17 10:01 Sertraline HCl (Zoloft) 25 mg PO DAILY [facility] Last Admin: 10/07/17 09:09 Dose: 25 mg Thiamine HCl (Vitamin B1 Tab) 100 mg PO DAILY [facility] Last Admin: 10/07/17 09:06 Dose: 100 mg Trazodone HCl (Desyrel) 50 mg PO HS RAMAKRISHNA - Labs Labs: 10/07/17 07:05 10/07/17 07:05 PT 13.8 SECONDS (9.7-12.2) H 10/05/17 10:27 INR 1.2 10/05/17 10:27 - Constitutional Appears: Unkempt, Agitated - Head Exam Head Exam: ATRAUMATIC, NORMAL INSPECTION, NORMOCEPHALIC - Eye Exam Eye Exam: EOMI - ENT Exam ENT Exam: Mucous Membranes Moist - Respiratory Exam Respiratory Exam: Clear to Ausculation Bilateral, NORMAL BREATHING PATTERN - Cardiovascular Exam Cardiovascular Exam: RRR, +S1, +S2 - GI/Abdominal Exam GI & Abdominal Exam: Soft, Normal Bowel Sounds. absent: Distended, Tenderness - Extremities Exam Extremities Exam: Normal Inspection - Neurological Exam Neurological Exam: Alert, Awake Additional comments: oriented to person only tremulous - Psychiatric Exam Psychiatric exam: Agitated, Anxious - Skin Skin Exam: Dry, Intact, Normal Color, Warm Assessment and Plan - Assessment and Plan (Free Text) Plan: (1) Alcohol withdrawal Assessment & Plan: Psychiatry Consult, Dr. Hernandez---> Help appreciated * Management as per recommendation * PO ativan changed to 3 mg IV Q3H * Librium 50 mg PO TID added 10/07 * Imodium 2mg PO q8h prn for symptoms of diarrhea * Zofran 4mg PO Q8H prn for nausea Management: -[facility] protocol -Folic 1 tab PO daily -Thiamine 100mg PO daily - Monitor withdrawal symptoms - UDS: Negative Status: Acute (2) Chest pain Assessment & Plan: Resolved EKG: Sinus Tachy with T-wave inversion lead III Troponin negative X1, F/U 2nd troponin Hold aspirin due to Thrombocytopneia Status: Acute (3) Thrombocytopenia Assessment & Plan: On admission 63-50L Continue to monitor, if no improvement by the time for discharge, recommendation for hematology and oncology consult H/H stable; no sign of active bleeding Status: Acute (4) Encounter for screening and preventative care Assessment & Plan: HgbA1C: 5.4 Lipid panel: TGL: 110, Cholesterol: 237, LDL: 114 and HDL: 95 Hepatitis and HIV: Negative RPR nonreactive Status: Acute (5) Prophylactic measure Assessment & Plan: GI: Pepcid 20mg PO BID DVT: SCDs, Anticoagualtion contraindicated due to acute thrombocyopneia All plans and management discussed with attending, Dr. Gillespie Status: Acute <Valentín Gillespie H - Last Filed: 10/07/17 16:19> Objective - Vital Signs/Intake and Output Vital Signs (last 24 hours): Temp Pulse Resp BP Pulse Ox 97.3 F L 104 H 20 158/98 H 97 10/06/17 15:00 10/06/17 15:00 10/06/17 15:00 10/06/17 15:00 10/06/17 15:00 Intake and Output: 10/07/17 10/07/17 06:59 18:59 Intake Total 580 Balance 580 - Medications Medications: Current Medications Acetaminophen (Tylenol 325mg Tab) 650 mg PO Q6 PRN PRN Reason: Fever >100.4 F Chlordiazepoxide (Librium) 50 mg PO TID [facility] Last Admin: 10/07/17 14:02 Dose: Not Given Famotidine (Pepcid) 20 mg PO BID [facility] Last Admin: 10/07/17 09:06 Dose: 20 mg Folic Acid (Folic Acid) 1 mg PO DAILY [facility] Last Admin: 10/07/17 09:06 Dose: 1 mg Ibuprofen (Motrin Tab) 400 mg PO Q6 PRN PRN Reason: Pain, Mild (1-3) Loperamide HCl (Imodium) 2 mg PO Q8 PRN PRN Reason: Diarrhea Lorazepam (Ativan) 3 mg IVP Q3H [facility] Last Admin: 10/07/17 14:03 Dose: Not Given Ondansetron HCl (Zofran Inj) 4 mg IVP Q6 PRN PRN Reason: Nausea/Vomiting Ondansetron HCl (Zofran Tab) 4 mg PO Q8 PRN PRN Reason: Nausea/Vomiting Pneumococcal Polyvalent Vaccine (Pneumovax 23 Vaccine) 0.5 ml IM .ONCE ONE Stop: 10/08/17 10:01 Sertraline HCl (Zoloft) 25 mg PO DAILY [facility] Last Admin: 10/07/17 09:09 Dose: 25 mg Thiamine HCl (Vitamin B1 Tab) 100 mg PO DAILY [facility] Last Admin: 10/07/17 09:06 Dose: 100 mg Trazodone HCl (Desyrel) 50 mg PO HS [facility] - Labs Labs: 10/07/17 07:05 10/07/17 07:05 PT 13.8 SECONDS (9.7-12.2) H 10/05/17 10:27 INR 1.2 10/05/17 10:27 Attending/Attestation - Attestation I have personally seen and examined this patient.: Yes I have fully participated in the care of the patient.: Yes I have reviewed all pertinent clinical information, including history, physical exam and plan: Yes Notes (Text): 10/07/17 16:19 Medical attending: Patient they said was very agitated overnight trying to get out of bed. He had to be restrained and placed on one-to-one. Overnight he did get IV Ativan. And earlier in the morning he again received IV Ativan as well as IM Haldol. When I saw him during rounds with the pesticide use medical coordinator, he was actively trying to get out of bed. He knew his name as well as his birthday. But he said that he was in [facility] when we asked location. He is currently on by mouth Ativan taper. Because of his current situation discontinued that and switch over to IV Ativan. We gave another dose of IV Ativan stat as well as 3 mg of IV Ativan to be given every 3 hours on a scheduled basis. We've also started Librium 50 mg by mouth 3 times a day. Hopefully this regimen will help him and we will avoid having to need to bring the patient to the ICU. As I explained to the staph as well as the nursing her goal is to keep the patient's son and slowly will decrease the Ativan IV over time Thank you very much, Valentín Gillespie
--- NOTE | 2017-10-07 12:02 | CARD ---
APPROVED REPORT EKG Measurement Heart [id number] <Conclusion> Sinus tachycardia Right axis deviation ST & T wave abnormality, consider inferior ischemia Abnormal ECG
--- NOTE | 2017-10-07 12:54 | CARD ---
APPROVED REPORT EKG Measurement Heart [id number] <Conclusion> Normal sinus rhythm Voltage criteria for left ventricular hypertrophy Nonspecific T wave abnormality Abnormal ECG
--- NOTE | 2017-10-07 16:22 | PCM.PYCHPN ---
Psychiatric Progress Note - Psychiatric Progress Note Patient seen today, length of contact: 15 min Patient Chief Complaint: "I am chikis" Problems Identified/Issues Discussed: Patient seen and evaluated, chart reviewed and discussed with the nurse. As per the staff, pt became increasingly disorganized and internally preoccupied. He appears paranoid and delusional. Patient reports withdrawal symptoms including nausea, headaches, cramps and sweating. As per the staff, he was acting bizarre and was jumping on the bed. Patient remained isolated, confined and withdrawn. Patient is compliant with medications and denies any side effects. Symptoms are improving but need more time to stabilize. Support and psychoeducation given. Medication Change: Yes (start haldol) Medical Record Reviewed: Yes Mental Status Examination - Cognitive Function Orientation: Person, Place, Situation, Time Memory: Intact Attention: Poor Concentration: Poor Association: Loose Fund of Knowledge: Poor - Mood Mood: Depressed, Anxious - Affect Affect: Constricted - Speech Speech: Loud - Formal Thought Process Formal Thought Process: Hallucinations, Delusions, Paranoia, Loosening of associations - Suicidal Ideation Suicidal Ideation: No - Homicidal Ideation Homicidal Ideation: No Goal/Treatment Plan - Goal/Treatment Plan Need for Continued Stay: Severe depression anxiety, Severe functional impairment Progress Toward Problem(s) and Goals/Treatment Plan: -Alcohol detox with Librium -Vitamins for nutrition -As needed medications -All risks, benefits and alternatives of the meds discussed, and the pt agreed and understood. -Individual therapy daily -Supportive therapy and psychoeducation -FL for abstinence -CBT for relapse prevention -Encourage MAT -Refer to rehab or IOP, and self-help groups -Teach healthy lifestyle methods, i.e. diet, exercise, meditation -Start Haldol -Start Zoloft -Start trazodone - Smoking Cessation Smoking Cessation Initiated: No
[2017-10-07] MEDS: DiphenhydrAMINE 50 mg/ml Inj IM PRN (20:57)
[2017-10-08] MEDS: DiphenhydrAMINE 50 mg/ml Inj IM PRN (02:49)
--- NOTE | 2017-10-08 04:19 | CP.PCM.PN ---
<Phillips[place]Aure hortonangela E - Last Filed: 10/08/17 04:46> Subjective - Date & Time of Evaluation Date of Evaluation: 10/08/17 Time of Evaluation: 00:40 - Subjective Subjective: Medicine note progress (Dr. Gillespie' Service) Patient was seen and examined at bedside. Patient was mumbling incoherent words and attempting to get out of bed, however, patient is very drowsy. Patient had received IV Ativan as well as IM Haldol (10/07/17) due to agitation. It si very difficult to obtain ROS due to patient status. Objective - Vital Signs/Intake and Output Vital Signs (last 24 hours): Temp Pulse Resp BP Pulse Ox 97.8 F 115 H 20 109/71 98 10/07/17 16:00 10/07/17 16:00 10/07/17 16:00 10/07/17 16:00 10/07/17 16:00 Intake and Output: 10/07/17 10/08/17 18:59 06:59 Intake Total 300 Balance 300 - Medications Medications: Current Medications Acetaminophen (Tylenol 325mg Tab) 650 mg PO Q6 PRN PRN Reason: Fever >100.4 F Chlordiazepoxide (Librium) 50 mg PO TID [facility] Last Admin: 10/07/17 18:12 Dose: 50 mg Diphenhydramine HCl (Benadryl) 50 mg IM Q6 PRN PRN Reason: Agitation Last Admin: 10/08/17 02:49 Dose: 50 mg Famotidine (Pepcid) 20 mg PO BID [facility] Last Admin: 10/07/17 18:14 Dose: 20 mg Folic Acid (Folic Acid) 1 mg PO DAILY [facility] Last Admin: 10/07/17 09:06 Dose: 1 mg Haloperidol Lactate (Haldol) 5 mg IM Q6 PRN PRN Reason: Agitation Ibuprofen (Motrin Tab) 400 mg PO Q6 PRN PRN Reason: Pain, Mild (1-3) Loperamide HCl (Imodium) 2 mg PO Q8 PRN PRN Reason: Diarrhea Lorazepam (Ativan) 3 mg IVP Q3H [facility] Last Admin: 10/08/17 02:48 Dose: 3 mg Ondansetron HCl (Zofran Tab) 4 mg PO Q8 PRN PRN Reason: Nausea/Vomiting Pneumococcal Polyvalent Vaccine (Pneumovax 23 Vaccine) 0.5 ml IM .ONCE ONE Stop: 10/08/17 10:01 Sertraline HCl (Zoloft) 25 mg PO DAILY [facility] Last Admin: 10/07/17 09:09 Dose: 25 mg Thiamine HCl (Vitamin B1 Tab) 100 mg PO DAILY [facility] Last Admin: 10/07/17 09:06 Dose: 100 mg Trazodone HCl (Desyrel) 50 mg PO HS [facility] Last Admin: 10/07/17 21:36 Dose: 50 mg - Labs Labs: 10/07/17 07:05 10/07/17 07:05 PT 13.8 SECONDS (9.7-12.2) H 10/05/17 10:27 INR 1.2 10/05/17 10:27 - Constitutional Appears: Agitated (very mildly ) - Head Exam Head Exam: ATRAUMATIC, NORMAL INSPECTION - ENT Exam ENT Exam: Mucous Membranes Dry - Respiratory Exam Respiratory Exam: Clear to Ausculation Bilateral, NORMAL BREATHING PATTERN - Cardiovascular Exam Cardiovascular Exam: REGULAR RHYTHM, +S1, +S2 - GI/Abdominal Exam GI & Abdominal Exam: Soft, Normal Bowel Sounds - Extremities Exam Extremities Exam: Normal Inspection. absent: Calf Tenderness, Pedal Edema - Neurological Exam Neurological Exam: absent: Alert, Awake, Oriented x3 - Psychiatric Exam Psychiatric exam: Agitated - Skin Skin Exam: Normal Color, Warm Assessment and Plan (1) Alcohol withdrawal Assessment & Plan: Psychiatry Consult, Dr. Hernandez---> Help appreciated * Management as per recommendation * PO ativan changed to 3 mg IV Q3H * Librium 50 mg PO TID added 10/07 * Imodium 2mg PO q8h prn for symptoms of diarrhea * Zofran 4mg PO Q8H prn for nausea * Haldol 5mg IM Q6 prn and Benadryl 50mg IM q6 prn for agitation Management: -[facility] protocol; 1:1 Observation -Folic 1 tab PO daily -Thiamine 100mg PO daily - Monitor withdrawal symptoms - UDS: Negative Status: Acute (2) Chest pain Assessment & Plan: Resolved EKG: Sinus Tachy with T-wave inversion lead III Troponin negative X2 Hold aspirin due to Thrombocytopneia Status: Acute (3) Thrombocytopenia Assessment & Plan: On admission 63-50L Continue to monitor, if no improvement by the time for discharge, recommendation for hematology and oncology consult H/H stable; no sign of active bleeding Status: Acute (4) Encounter for screening and preventative care Assessment & Plan: HgbA1C: 5.4 Lipid panel: TGL: 110, Cholesterol: 237, LDL: 114 and HDL: 95 Hepatitis and HIV: Negative RPR nonreactive Status: Acute (5) Electrolyte imbalance Assessment & Plan: Hypokalemia and hypomagnesemia * Repleted appropriately * Continue to monitor wuth am labs Status: Acute (6) Prophylactic measure Assessment & Plan: GI: Pepcid 20mg PO BID DVT: SCDs, Anticoagualtion contraindicated due to acute thrombocyopneia All plans and management discussed with attending Status: Acute <Valentín Gillespie H - Last Filed: 10/08/17 11:01> Objective - Vital Signs/Intake and Output Vital Signs (last 24 hours): Temp Pulse Resp BP Pulse Ox 99.8 F H 120 H 20 115/80 95 10/08/17 09:25 10/08/17 09:25 10/08/17 09:25 10/08/17 09:25 10/08/17 09:25 Intake and Output: 10/08/17 10/08/17 06:59 18:59 Intake Total 720 Balance 720 - Medications Medications: Current Medications Acetaminophen (Tylenol 325mg Tab) 650 mg PO Q6 PRN PRN Reason: Fever >100.4 F Chlordiazepoxide (Librium) 50 mg PO TID [facility] Last Admin: 10/08/17 09:09 Dose: 50 mg Diphenhydramine HCl (Benadryl) 50 mg IM Q6 PRN PRN Reason: Agitation Last Admin: 10/08/17 02:49 Dose: 50 mg Famotidine (Pepcid) 20 mg PO BID [facility] Last Admin: 10/08/17 09:04 Dose: 20 mg Folic Acid (Folic Acid) 1 mg PO DAILY [facility] Last Admin: 10/08/17 09:04 Dose: 1 mg Haloperidol Lactate (Haldol) 5 mg IM Q6 PRN PRN Reason: Agitation Last Admin: 10/08/17 09:00 Dose: 5 mg Sodium Chloride (Sodium Chloride 0.9%) 1,000 mls @ 100 mls/hr IV .Q10H [facility] Ibuprofen (Motrin Tab) 400 mg PO Q6 PRN PRN Reason: Pain, Mild (1-3) Loperamide HCl (Imodium) 2 mg PO Q8 PRN PRN Reason: Diarrhea Lorazepam (Ativan) 3 mg IVP Q3H [facility] Last Admin: 10/08/17 08:00 Dose: 3 mg Ondansetron HCl (Zofran Tab) 4 mg PO Q8 PRN PRN Reason: Nausea/Vomiting Sertraline HCl (Zoloft) 25 mg PO DAILY [facility] Last Admin: 10/08/17 09:04 Dose: 25 mg Thiamine HCl (Vitamin B1 Tab) 100 mg PO DAILY [facility] Last Admin: 10/08/17 09:04 Dose: 100 mg Trazodone HCl (Desyrel) 50 mg PO HS [facility] Last Admin: 10/07/17 21:36 Dose: 50 mg - Labs Labs: 10/08/17 07:34 10/08/17 07:34 PT 13.8 SECONDS (9.7-12.2) H 10/05/17 10:27 INR 1.2 10/05/17 10:27 Attending/Attestation - Attestation I have personally seen and examined this patient.: Yes I have fully participated in the care of the patient.: Yes I have reviewed all pertinent clinical information, including history, physical exam and plan: Yes Notes (Text): 10/08/17 10:58 Medical attending; Patient was seen and examined by me at 10:30 this morning. He was still having some tremors I could see. He just received a dose of ativan 3mg IV just before I walked in He was awake however he was not able to answer questions. At this time continue with the Ativan 3mg IV q3 and also Librium 50 PO TID Started on IVF with NSS @ 100 cc/hr Continue to monitor the withdrawl symptoms thank you Valentín Gillespie
[2017-10-08] MEDS: Magnesium Sulfate 1 gm in D5W 1 GM/100 ML BAG IVPB SCH ×2 (05:24→05:47)
[2017-10-08 07:56] LABS: BASO # 0.1 K/uL (0.0-0.2); BASO % 0.6 % (0.0-2.0); EOS # 0.4 K/uL (0.0-0.7); EOS % 4.1 % (0.0-4.0); HEMOGLOBIN 16.1 g/dL (12.0-18.0); LYMPH # 1.5 K/uL (1.0-4.3); LYMPH % 16.5 % (20.0-40.0); MEAN CELL VOLUME 96.3 fL (80.0-94.0); MEAN CORPUSCULAR HEMOGLOBIN 34.1 pg (27.0-31.0); MEAN CORPUSCULAR HGB CONC 35.4 g/dL (33.0-37.0); MEAN PLATELET VOLUME 9.3 fL (7.2-11.7); MONO # 0.7 K/uL (0.0-0.8); MONO % 7.7 % (0.0-10.0); NEUT # 6.5 K/uL (1.8-7.0); NEUT % 71.1 % (50.0-75.0); RBC 4.72 Mil/uL (4.40-5.90); RED CELL DISTRIBUTION WIDTH 12.7 % (11.5-14.5); WHITE BLOOD COUNT 9.1 K/uL (4.8-10.8)
[2017-10-08 08:07] LABS: ALBUMIN 4.6 g/dL (3.5-5.0); ALT/SGPT 50 U/L (21-72); AST/SGOT 162 U/L (17-59); BLOOD UREA NITROGEN 17 mg/dL (9-20); CALCIUM 10.9 mg/dl (8.6-10.4); GFR AFRICAN-AMERICAN > 60; GFR NON-AFRICAN AMERICAN > 60; MAGNESIUM 3.1 mg/dL (1.6-2.3)
[2017-10-08] MEDS ORDERED: Pneumococcal 23-Valent Vaccine IM ONE (10:00)
[2017-10-08] MEDS ORDERED: Influenza Vaccine 60 mcg/0.5 mL SYR (4YR UP) IM ONE (10:00)
[2017-10-08] MEDS ORDERED: Dextrose 5%/0.45% NS 1,000 ML IV SCH (11:00)
[2017-10-08] MEDS: Sodium Chloride 0.9% 1,000 ML IV SCH ×2 (11:00→21:59)
--- NOTE | 2017-10-09 00:59 | CP.PCM.PN ---
<JzeAureangela E - Last Filed: 10/09/17 01:03> Subjective - Date & Time of Evaluation Date of Evaluation: 10/09/17 Time of Evaluation: 00:20 - Subjective Subjective: Medicine note progress (Dr. Gillespie' Service) Patient was seen and examined at bedside. Patient still attempting to get out of bed however, patient is very drowsy. Patient remains on 1:1 observation. It is very difficulty to evaluate ROS due to patient's condition. Objective - Vital Signs/Intake and Output Vital Signs (last 24 hours): Temp Pulse Resp BP Pulse Ox 98.7 F 112 H 20 116/75 97 10/08/17 17:17 10/08/17 17:17 10/08/17 17:17 10/08/17 17:17 10/08/17 17:17 Intake and Output: 10/08/17 10/09/17 18:59 06:59 Intake Total 900 Balance 900 - Medications Medications: Current Medications Acetaminophen (Tylenol 325mg Tab) 650 mg PO Q6 PRN PRN Reason: Fever >100.4 F Chlordiazepoxide (Librium) 50 mg PO TID [facility] Last Admin: 10/08/17 18:50 Dose: 50 mg Diphenhydramine HCl (Benadryl) 50 mg IM Q6 PRN PRN Reason: Agitation Last Admin: 10/08/17 02:49 Dose: 50 mg Famotidine (Pepcid) 20 mg PO BID [facility] Last Admin: 10/08/17 18:45 Dose: 20 mg Folic Acid (Folic Acid) 1 mg PO DAILY [facility] Last Admin: 10/08/17 09:04 Dose: 1 mg Haloperidol Lactate (Haldol) 5 mg IM Q6 PRN PRN Reason: Agitation Last Admin: 10/08/17 09:00 Dose: 5 mg Sodium Chloride (Sodium Chloride 0.9%) 1,000 mls @ 100 mls/hr IV .Q10H [facility] Last Admin: 10/08/17 21:59 Dose: 100 mls/hr Ibuprofen (Motrin Tab) 400 mg PO Q6 PRN PRN Reason: Pain, Mild (1-3) Loperamide HCl (Imodium) 2 mg PO Q8 PRN PRN Reason: Diarrhea Lorazepam (Ativan) 3 mg IVP Q3H [facility] Last Admin: 10/08/17 22:00 Dose: 3 mg Ondansetron HCl (Zofran Tab) 4 mg PO Q8 PRN PRN Reason: Nausea/Vomiting Sertraline HCl (Zoloft) 25 mg PO DAILY [facility] Last Admin: 10/08/17 09:04 Dose: 25 mg Thiamine HCl (Vitamin B1 Tab) 100 mg PO DAILY [facility] Last Admin: 10/08/17 09:04 Dose: 100 mg Trazodone HCl (Desyrel) 50 mg PO HS [facility] Last Admin: 10/08/17 21:59 Dose: Not Given - Labs Labs: 10/08/17 07:34 10/08/17 07:34 PT 13.8 SECONDS (9.7-12.2) H 10/05/17 10:27 INR 1.2 10/05/17 10:27 - Constitutional Appears: No Acute Distress - Head Exam Head Exam: ATRAUMATIC - Eye Exam Eye Exam: EOMI - ENT Exam ENT Exam: Mucous Membranes Dry - Respiratory Exam Respiratory Exam: Clear to Ausculation Bilateral, NORMAL BREATHING PATTERN. absent: Rhonchi, Wheezes, Respiratory Distress - Cardiovascular Exam Cardiovascular Exam: REGULAR RHYTHM, +S1, +S2. absent: Murmur - GI/Abdominal Exam GI & Abdominal Exam: Soft, Normal Bowel Sounds. absent: Firm, Guarding, Tenderness - Extremities Exam Extremities Exam: Normal Inspection. absent: Calf Tenderness, Pedal Edema - Neurological Exam Neurological Exam: absent: Awake, Oriented x3 - Psychiatric Exam Psychiatric exam: Agitated, Anxious - Skin Skin Exam: Normal Color Assessment and Plan (1) Alcohol withdrawal Assessment & Plan: Psychiatry Consult, Dr. Hernandez---> Help appreciated * Management as per recommendation * PO ativan changed to 3 mg IV Q3H * Librium 50 mg PO TID added 10/07 * Imodium 2mg PO q8h prn for symptoms of diarrhea * Zofran 4mg PO Q8H prn for nausea * Haldol 5mg IM Q6 prn and Benadryl 50mg IM q6 prn for agitation Management: -[place] protocol; 1:1 Observation -Folic 1 tab PO daily -Thiamine 100mg PO daily - Monitor withdrawal symptoms - UDS: Negative Status: Acute (2) Chest pain Assessment & Plan: Resolved EKG: Sinus Tachy with T-wave inversion lead III (09/29/17) Troponin negative X2 (09/29/17) Hold aspirin due to Thrombocytopneia Status: Acute (3) Thrombocytopenia Assessment & Plan: Improving Continue to monitor, if no improvement by the time for discharge, recommendation for hematology and oncology consult H/H stable; no sign of active bleeding Status: Acute (4) Encounter for screening and preventative care Assessment & Plan: HgbA1C: 5.4 Lipid panel: TGL: 110, Cholesterol: 237, LDL: 114 and HDL: 95 * Lifestyle modification Hepatitis and HIV: Negative RPR nonreactive Status: Acute (5) Electrolyte imbalance Assessment & Plan: Resolved Hypokalemia and hypomagnesemia * Continue to monitor wuth am labs Status: Acute (6) Prophylactic measure Assessment & Plan: GI: Pepcid 20mg PO BID DVT: SCDs, Anticoagualtion contraindicated due to acute thrombocyopneia All plans and management discussed with attending Status: Acute <Valentín Gillespie H - Last Filed: 10/09/17 10:40> Objective - Vital Signs/Intake and Output Vital Signs (last 24 hours): Temp Pulse Resp BP Pulse Ox 98.7 F 112 H 20 116/75 97 10/08/17 17:17 10/08/17 17:17 10/08/17 17:17 10/08/17 17:17 10/08/17 17:17 Intake and Output: 10/09/17 10/09/17 06:59 18:59 Intake Total 900 Balance 900 - Medications Medications: Current Medications Acetaminophen (Tylenol 325mg Tab) 650 mg PO Q6 PRN PRN Reason: Fever >100.4 F Chlordiazepoxide (Librium) 50 mg PO TID [facility] Last Admin: 10/09/17 10:24 Dose: 50 mg Diphenhydramine HCl (Benadryl) 50 mg IM Q6 PRN PRN Reason: Agitation Last Admin: 10/08/17 02:49 Dose: 50 mg Famotidine (Pepcid) 20 mg PO BID [facility] Last Admin: 10/09/17 10:24 Dose: 20 mg Folic Acid (Folic Acid) 1 mg PO DAILY [facility] Last Admin: 10/09/17 10:24 Dose: 1 mg Haloperidol Lactate (Haldol) 5 mg IM Q6 PRN PRN Reason: Agitation Last Admin: 10/08/17 09:00 Dose: 5 mg Sodium Chloride (Sodium Chloride 0.9%) 1,000 mls @ 100 mls/hr IV .Q10H [facility] Last Admin: 10/09/17 10:25 Dose: 100 mls/hr Ibuprofen (Motrin Tab) 400 mg PO Q6 PRN PRN Reason: Pain, Mild (1-3) Loperamide HCl (Imodium) 2 mg PO Q8 PRN PRN Reason: Diarrhea Lorazepam (Ativan) 2 mg IVP Q3H [facility] Ondansetron HCl (Zofran Tab) 4 mg PO Q8 PRN PRN Reason: Nausea/Vomiting Sertraline HCl (Zoloft) 25 mg PO DAILY [facility] Last Admin: 10/09/17 10:24 Dose: 25 mg Thiamine HCl (Vitamin B1 Tab) 100 mg PO DAILY [facility] Last Admin: 10/09/17 10:24 Dose: 100 mg Trazodone HCl (Desyrel) 50 mg PO HS [facility] Last Admin: 10/08/17 21:59 Dose: Not Given - Labs Labs: 10/09/17 07:57 10/09/17 07:57 PT 13.8 SECONDS (9.7-12.2) H 10/05/17 10:27 INR 1.2 10/05/17 10:27 Attending/Attestation - Attestation I have personally seen and examined this patient.: Yes I have fully participated in the care of the patient.: Yes I have reviewed all pertinent clinical information, including history, physical exam and plan: Yes Notes (Text): 10/09/17 10:37 Medical attending: Patient was seen and examined by me. Agree with the above note by the resident Today he was somnolent - however he was awake and able to answer questions. He denied chest pain, denied abdominal pain, denied fever, denied headache. He said he felt tired. He has been on Ativan 3mg IV Q3hrs on a sceduled basis as well as Librium PO 50 TID He finally appears much more calm today - so will decerase to Ativan 2mg IV Q3. Continue Librium as before Valentín Gillespie
[2017-10-09 08:09] LABS: BASO # 0.1 K/uL (0.0-0.2); EOS # 0.5 K/uL (0.0-0.7); EOS % 5.6 % (0.0-4.0); LYMPH # 1.1 K/uL (1.0-4.3); LYMPH % 12.9 % (20.0-40.0); MEAN CELL VOLUME 97.5 fL (80.0-94.0); MEAN CORPUSCULAR HEMOGLOBIN 34.4 pg (27.0-31.0); MEAN CORPUSCULAR HGB CONC 35.2 g/dL (33.0-37.0); MEAN PLATELET VOLUME 8.7 fL (7.2-11.7); MONO # 0.7 K/uL (0.0-0.8); MONO % 8.2 % (0.0-10.0); NEUT # 5.9 K/uL (1.8-7.0); NEUT % 72.3 % (50.0-75.0); NRBC % 0.1 % (0.0-2.0); RBC 4.04 Mil/uL (4.40-5.90); RED CELL DISTRIBUTION WIDTH 12.5 % (11.5-14.5); WHITE BLOOD COUNT 8.2 K/uL (4.8-10.8)
[2017-10-09 08:15] LABS: HEMOGLOBIN 13.9 g/dL (12.0-18.0)
[2017-10-09 08:44] LABS: ALBUMIN 3.8 g/dL (3.5-5.0); ALT/SGPT 60 U/L (21-72); AST/SGOT 170 U/L (17-59); BLOOD UREA NITROGEN 14 mg/dL (9-20); CALCIUM 8.9 mg/dl (8.6-10.4); GFR AFRICAN-AMERICAN > 60; GFR NON-AFRICAN AMERICAN > 60; MAGNESIUM 2.3 mg/dL (1.6-2.3)
[2017-10-09] MEDS: Sodium Chloride 0.9% 1,000 ML IV SCH ×3 (10:25→19:59)
[2017-10-10] MEDS: Sodium Chloride 0.9% 1,000 ML IV SCH ×5 (03:00→22:01)
[2017-10-10 06:18] LABS: BASO # 0.1 K/uL (0.0-0.2); BASO % 0.8 % (0.0-2.0); EOS # 0.4 K/uL (0.0-0.7); EOS % 5.7 % (0.0-4.0); LYMPH # 1.1 K/uL (1.0-4.3); MEAN CELL VOLUME 96.7 fL (80.0-94.0); MEAN CORPUSCULAR HEMOGLOBIN 34.2 pg (27.0-31.0); MEAN CORPUSCULAR HGB CONC 35.4 g/dL (33.0-37.0); MEAN PLATELET VOLUME 8.7 fL (7.2-11.7); MONO # 0.8 K/uL (0.0-0.8); NEUT % 67.5 % (50.0-75.0); RBC 3.8 Mil/uL (4.40-5.90); RED CELL DISTRIBUTION WIDTH 12.5 % (11.5-14.5); WHITE BLOOD COUNT 7.4 K/uL (4.8-10.8)
[2017-10-10 06:47] LABS: ALBUMIN 3.4 g/dL (3.5-5.0); ALT/SGPT 48 U/L (21-72); AST/SGOT 101 U/L (17-59); BLOOD UREA NITROGEN 7 mg/dL (9-20); CALCIUM 8.3 mg/dl (8.6-10.4); GFR AFRICAN-AMERICAN > 60; GFR NON-AFRICAN AMERICAN > 60; MAGNESIUM 1.9 mg/dL (1.6-2.3)
[2017-10-10] MEDS ORDERED: Potassium Chloride 20 mEq ER Tab PO ONE (07:52)
--- NOTE | 2017-10-10 15:15 | CP.PCM.PN ---
<Janett Story E - Last Filed: 10/10/17 15:11> Subjective - Date & Time of Evaluation Date of Evaluation: 10/10/17 Time of Evaluation: 07:30 - Subjective Subjective: Medicine progress note (Dr. Gomez's service) Patient was seen and examined at bedside on 1:1 observation. Patient was more awake today and to answer a few questions. Patient denies any discomfort or any acute issues. Patient is less tremulous. Objective - Vital Signs/Intake and Output Vital Signs (last 24 hours): Temp Pulse Resp BP Pulse Ox 98.6 F 103 H 20 118/67 99 10/10/17 08:21 10/10/17 08:21 10/10/17 08:21 10/10/17 08:21 10/10/17 08:21 Intake and Output: 10/10/17 10/10/17 06:59 18:59 Intake Total 800 920 Balance 800 920 - Medications Medications: Current Medications Acetaminophen (Tylenol 325mg Tab) 650 mg PO Q6 PRN PRN Reason: Fever >100.4 F Chlordiazepoxide (Librium) 50 mg PO TID [facility] Last Admin: 10/10/17 14:47 Dose: 50 mg Diphenhydramine HCl (Benadryl) 50 mg IM Q6 PRN PRN Reason: Agitation Last Admin: 10/08/17 02:49 Dose: 50 mg Famotidine (Pepcid) 20 mg PO BID [facility] Last Admin: 10/10/17 10:33 Dose: 20 mg Folic Acid (Folic Acid) 1 mg PO DAILY [facility] Last Admin: 10/10/17 10:33 Dose: 1 mg Haloperidol Lactate (Haldol) 5 mg IM Q6 PRN PRN Reason: Agitation Last Admin: 10/08/17 09:00 Dose: 5 mg Sodium Chloride (Sodium Chloride 0.9%) 1,000 mls @ 100 mls/hr IV .Q10H [facility] Last Admin: 10/10/17 06:04 Dose: 100 mls/hr Ibuprofen (Motrin Tab) 400 mg PO Q6 PRN PRN Reason: Pain, Mild (1-3) Loperamide HCl (Imodium) 2 mg PO Q8 PRN PRN Reason: Diarrhea Lorazepam (Ativan) 1 mg IVP Q6H [facility] Last Admin: 10/10/17 14:28 Dose: Not Given Ondansetron HCl (Zofran Tab) 4 mg PO Q8 PRN PRN Reason: Nausea/Vomiting Sertraline HCl (Zoloft) 25 mg PO DAILY [facility] Last Admin: 10/10/17 10:33 Dose: 25 mg Thiamine HCl (Vitamin B1 Tab) 100 mg PO DAILY [facility] Last Admin: 10/10/17 10:33 Dose: 100 mg Trazodone HCl (Desyrel) 50 mg PO [facility] Last Admin: 10/09/17 21:12 Dose: 50 mg - Labs Labs: 10/10/17 06:14 10/10/17 06:14 PT 13.8 SECONDS (9.7-12.2) H 10/05/17 10:27 INR 1.2 10/05/17 10:27 - Constitutional Appears: No Acute Distress - Head Exam Head Exam: ATRAUMATIC - Eye Exam Eye Exam: EOMI, Normal appearance - ENT Exam ENT Exam: Mucous Membranes Moist - Respiratory Exam Respiratory Exam: Clear to Ausculation Bilateral, NORMAL BREATHING PATTERN. absent: Rales, Rhonchi, Wheezes, Respiratory Distress - Cardiovascular Exam Cardiovascular Exam: REGULAR RHYTHM, +S1, +S2. absent: Murmur - GI/Abdominal Exam GI & Abdominal Exam: Soft, Normal Bowel Sounds. absent: Distended, Firm, Guarding, Rigid, Tenderness - Extremities Exam Extremities Exam: Normal Inspection. absent: Calf Tenderness, Pedal Edema - Neurological Exam Neurological Exam: Awake - Psychiatric Exam Psychiatric exam: Normal Affect - Skin Skin Exam: Normal Color Assessment and Plan (1) Alcohol withdrawal Assessment & Plan: Psychiatry Consult, Dr. Hernandez---> Help appreciated * Management as per recommendation * Ativan 3 mg IV Q3H changed to 1mg IV Q6H (10/10/17) * Librium 50 mg PO TID added 10/07 * Imodium 2mg PO q8h prn for symptoms of diarrhea * Zofran 4mg PO Q8H prn for nausea * Haldol 5mg IM Q6 prn and Benadryl 50mg IM q6 prn for agitation Management: -[facility] protocol; 1:1 Observation -Folic 1 tab PO daily -Thiamine 100mg PO daily - Monitor withdrawal symptoms - UDS: Negative Status: Acute (2) Depression Assessment & Plan: Psychiatry Consult, Dr. Hernandez---> Help appreciated * Management as per recommendation * Zoloft 25mg PO daily Status: Acute (3) Chest pain Assessment & Plan: Resolved EKG: Sinus Tachy with T-wave inversion lead III (09/29/17) Troponin negative X2 (09/29/17) Hold aspirin due to Thrombocytopneia Status: Acute (4) Thrombocytopenia Assessment & Plan: Improving Continue to monitor, if no improvement by the time for discharge, recommendation for hematology and oncology consult H/H stable; no sign of active bleeding Status: Acute (5) Encounter for screening and preventative care Assessment & Plan: HgbA1C: 5.4 Lipid panel: TGL: 110, Cholesterol: 237, LDL: 114 and HDL: 95 * Lifestyle modification Hepatitis and HIV: Negative RPR nonreactive Status: Acute (6) Electrolyte imbalance Assessment & Plan: Improving Hypokalemia and hypomagnesemia * Continue to monitor wuth am labs Status: Acute (7) Prophylactic measure Assessment & Plan: GI: Pepcid 20mg PO BID DVT: SCDs, Anticoagualtion contraindicated due to acute thrombocyopneia All plans and management discussed with attending, Dr. Gomez Status: Acute <Massiel Gomez - Last Filed: 10/11/17 13:17> Objective - Vital Signs/Intake and Output Vital Signs (last 24 hours): Temp Pulse Resp BP Pulse Ox 98.2 F 75 20 109/65 96 10/11/17 08:10 10/11/17 08:10 10/11/17 08:10 10/11/17 08:10 10/11/17 08:10 Intake and Output: 10/11/17 10/11/17 06:59 18:59 Intake Total 1200 900 Balance 1200 900 - Medications Medications: Current Medications Acetaminophen (Tylenol 325mg Tab) 650 mg PO Q6 PRN PRN Reason: Fever >100.4 F Chlordiazepoxide (Librium) 50 mg PO TID [facility] Last Admin: 10/11/17 11:47 Dose: 50 mg Diphenhydramine HCl (Benadryl) 50 mg IM Q6 PRN PRN Reason: Agitation Last Admin: 10/08/17 02:49 Dose: 50 mg Famotidine (Pepcid) 20 mg PO BID [facility] Last Admin: 10/11/17 11:42 Dose: 20 mg Folic Acid (Folic Acid) 1 mg PO DAILY [facility] Last Admin: 10/11/17 11:42 Dose: 1 mg Haloperidol Lactate (Haldol) 5 mg IM Q6 PRN PRN Reason: Agitation Last Admin: 10/08/17 09:00 Dose: 5 mg Ibuprofen (Motrin Tab) 400 mg PO Q6 PRN PRN Reason: Pain, Mild (1-3) Loperamide HCl (Imodium) 2 mg PO Q8 PRN PRN Reason: Diarrhea Lorazepam (Ativan) 1 mg IVP Q6H PRN PRN Reason: Symptoms of alcohol withdrawl Ondansetron HCl (Zofran Tab) 4 mg PO Q8 PRN PRN Reason: Nausea/Vomiting Sertraline HCl (Zoloft) 25 mg PO DAILY [facility] Last Admin: 10/11/17 11:42 Dose: 25 mg Thiamine HCl (Vitamin B1 Tab) 100 mg PO DAILY [facility] Last Admin: 10/11/17 11:42 Dose: 100 mg Trazodone HCl (Desyrel) 50 mg PO HS [facility] Last Admin: 10/10/17 22:01 Dose: 50 mg - Labs Labs: 10/11/17 06:42 10/11/17 06:42 PT 13.8 SECONDS (9.7-12.2) H 10/05/17 10:27 INR 1.2 10/05/17 10:27 Attending/Attestation - Attestation I have personally seen and examined this patient.: Yes I have fully participated in the care of the patient.: Yes I have reviewed all pertinent clinical information, including history, physical exam and plan: Yes Notes (Text): Seen and examined.Awake and oriented,not confused less agitated.d/w RN,We will observe Off Mitten reduce the dose of Ativan,continue other meds,follow with psychiatry d/w the resident. I agree with the documentation of the assessment and the plan
[2017-10-11 06:57] LABS: BASO % 0.7 % (0.0-2.0); EOS # 0.4 K/uL (0.0-0.7); EOS % 6.9 % (0.0-4.0); HEMOGLOBIN 12.7 g/dL (12.0-18.0); LYMPH # 0.9 K/uL (1.0-4.3); LYMPH % 13.3 % (20.0-40.0); MEAN CELL VOLUME 95.8 fL (80.0-94.0); MEAN CORPUSCULAR HEMOGLOBIN 34.3 pg (27.0-31.0); MEAN CORPUSCULAR HGB CONC 35.8 g/dL (33.0-37.0); MEAN PLATELET VOLUME 8.4 fL (7.2-11.7); MONO # 0.7 K/uL (0.0-0.8); MONO % 11.4 % (0.0-10.0); NEUT # 4.4 K/uL (1.8-7.0); NEUT % 67.7 % (50.0-75.0); RBC 3.69 Mil/uL (4.40-5.90); RED CELL DISTRIBUTION WIDTH 12.6 % (11.5-14.5); WHITE BLOOD COUNT 6.5 K/uL (4.8-10.8)
[2017-10-11 07:20] LABS: ALBUMIN 3.4 g/dL (3.5-5.0); ALT/SGPT 42 U/L (21-72); AST/SGOT 96 U/L (17-59); BLOOD UREA NITROGEN 4 mg/dL (9-20); CALCIUM 8.8 mg/dl (8.6-10.4); GFR AFRICAN-AMERICAN > 60; GFR NON-AFRICAN AMERICAN > 60; MAGNESIUM 1.8 mg/dL (1.6-2.3)
[2017-10-11] MEDS: Sodium Chloride 0.9% 1,000 ML IV SCH (09:00)
[2017-10-11] MEDS ORDERED: Magnesium Sulfate 1 gm in D5W 1 GM/100 ML BAG IVPB ONE (09:28)
[2017-10-11] MEDS ORDERED: Potassium Chloride 20 mEq/15 ml LIQ UD PO ONE (09:29)
--- NOTE | 2017-10-11 10:26 | CP.PCM.PN ---
<JezAureangela Dave - Last Filed: 10/11/17 15:51> Subjective - Date & Time of Evaluation Date of Evaluation: 10/11/17 Time of Evaluation: 07:05 - Subjective Subjective: Medicine progress note (Dr. Gomez's service) Patient was seen and examined at bedside, remains on 1:1 observation. Patient was more awake today and to answer a few questions; patient was oriented to location and person. Patient denies any discomfort or any acute issues. Patient is less tremulous. Objective - Vital Signs/Intake and Output Vital Signs (last 24 hours): Temp Pulse Resp BP Pulse Ox 98.2 F 75 20 109/65 96 10/11/17 08:10 10/11/17 08:10 10/11/17 08:10 10/11/17 08:10 10/11/17 08:10 Intake and Output: 10/11/17 10/11/17 06:59 18:59 Intake Total 1200 900 Balance 1200 900 - Medications Medications: Current Medications Acetaminophen (Tylenol 325mg Tab) 650 mg PO Q6 PRN PRN Reason: Fever >100.4 F Chlordiazepoxide (Librium) 50 mg PO TID [facility] Last Admin: 10/10/17 18:53 Dose: 50 mg Diphenhydramine HCl (Benadryl) 50 mg IM Q6 PRN PRN Reason: Agitation Last Admin: 10/08/17 02:49 Dose: 50 mg Famotidine (Pepcid) 20 mg PO BID [facility] Last Admin: 10/10/17 18:53 Dose: 20 mg Folic Acid (Folic Acid) 1 mg PO DAILY [facility] Last Admin: 10/10/17 10:33 Dose: 1 mg Haloperidol Lactate (Haldol) 5 mg IM Q6 PRN PRN Reason: Agitation Last Admin: 10/08/17 09:00 Dose: 5 mg Sodium Chloride (Sodium Chloride 0.9%) 1,000 mls @ 100 mls/hr IV .Q10H [facility] Last Admin: 10/10/17 22:01 Dose: Not Given Potassium Chloride (Potassium Chloride 20 Meq/100 Ml) 20 meq in 100 mls @ 50 mls/hr IVPB ONCE ONE Stop: 10/11/17 11:27 Ibuprofen (Motrin Tab) 400 mg PO Q6 PRN PRN Reason: Pain, Mild (1-3) Loperamide HCl (Imodium) 2 mg PO Q8 PRN PRN Reason: Diarrhea Lorazepam (Ativan) 1 mg IVP Q6H PRN PRN Reason: Symptoms of alcohol withdrawl Ondansetron HCl (Zofran Tab) 4 mg PO Q8 PRN PRN Reason: Nausea/Vomiting Sertraline HCl (Zoloft) 25 mg PO DAILY [facility] Last Admin: 10/10/17 10:33 Dose: 25 mg Thiamine HCl (Vitamin B1 Tab) 100 mg PO DAILY [facility] Last Admin: 10/10/17 10:33 Dose: 100 mg Trazodone HCl (Desyrel) 50 mg PO HS [facility] Last Admin: 10/10/17 22:01 Dose: 50 mg - Labs Labs: 10/11/17 06:42 10/11/17 06:42 PT 13.8 SECONDS (9.7-12.2) H 10/05/17 10:27 INR 1.2 10/05/17 10:27 - Constitutional Appears: Well, No Acute Distress - Head Exam Head Exam: ATRAUMATIC, NORMAL INSPECTION - Eye Exam Eye Exam: EOMI, Normal appearance - ENT Exam ENT Exam: Mucous Membranes Dry - Respiratory Exam Respiratory Exam: Clear to Ausculation Bilateral, NORMAL BREATHING PATTERN. absent: Rhonchi, Wheezes, Respiratory Distress - Cardiovascular Exam Cardiovascular Exam: REGULAR RHYTHM, +S1, +S2 - GI/Abdominal Exam GI & Abdominal Exam: Soft, Normal Bowel Sounds. absent: Distended, Firm, Guarding, Rigid, Tenderness - Extremities Exam Extremities Exam: Normal Inspection. absent: Calf Tenderness, Pedal Edema - Neurological Exam Neurological Exam: Awake - Psychiatric Exam Psychiatric exam: Anxious - Skin Skin Exam: Normal Color Assessment and Plan (1) Alcohol withdrawal Assessment & Plan: Psychiatry Consult, Dr. Hernandez---> Help appreciated * Management as per recommendation * Ativan 3 mg IV Q3H changed to 1mg IV Q6H PRN (10/10/17) * Librium 50 mg PO TID added 10/07 * Imodium 2mg PO q8h prn for symptoms of diarrhea * Zofran 4mg PO Q8H prn for nausea * Haldol 5mg IM Q6 prn and Benadryl 50mg IM q6 prn for agitation Management: -[facility] protocol; 1:1 Observation -Folic 1 tab PO daily -Thiamine 100mg PO daily - Monitor withdrawal symptoms - UDS: Negative Status: Acute (2) Depression Assessment & Plan: Psychiatry Consult, Dr. Hernandez---> Help appreciated * Management as per recommendation * Zoloft 25mg PO daily Status: Acute (3) Chest pain Assessment & Plan: Resolved EKG: Sinus Tachy with T-wave inversion lead III (09/29/17) Troponin negative X2 (09/29/17) Hold aspirin due to Thrombocytopenia Status: Acute (4) Thrombocytopenia Assessment & Plan: Improving Continue to monitor, if no improvement by the time for discharge, recommendation for hematology and oncology consult H/H stable; no sign of active bleeding Status: Acute (5) Encounter for screening and preventative care Assessment & Plan: HgbA1C: 5.4 Lipid panel: TGL: 110, Cholesterol: 237, LDL: 114 and HDL: 95 * Lifestyle modification Hepatitis and HIV: Negative RPR nonreactive Status: Acute (6) Electrolyte imbalance Assessment & Plan: Intermittent improvement Hypokalemia and hypomagnesemia * Repleted appropriately * Continue to monitor with am labs Status: Acute (7) Prophylactic measure Assessment & Plan: GI: Pepcid 20mg PO BID DVT: SCDs, Anticoagualtion contraindicated due to acute thrombocyopneia Disposition: Patient not stable for transfer and admit to inpatient psychiatry All plans and management discussed with attending, Dr. Gomez Status: Acute <Massiel Gomez - Last Filed: 10/11/17 18:29> Objective - Vital Signs/Intake and Output Vital Signs (last 24 hours): Temp Pulse Resp BP Pulse Ox 99 F 86 20 113/75 93 L 10/11/17 15:53 10/11/17 15:53 10/11/17 15:53 10/11/17 15:53 10/11/17 15:53 Intake and Output: 10/11/17 10/11/17 06:59 18:59 Intake Total 1200 900 Output Total 350 Balance 1200 550 - Medications Medications: Current Medications Acetaminophen (Tylenol 325mg Tab) 650 mg PO Q6 PRN PRN Reason: Fever >100.4 F Chlordiazepoxide (Librium) 50 mg PO TID [facility] Last Admin: 10/11/17 17:45 Dose: Not Given Diphenhydramine HCl (Benadryl) 50 mg IM Q6 PRN PRN Reason: Agitation Last Admin: 10/08/17 02:49 Dose: 50 mg Famotidine (Pepcid) 20 mg PO BID [facility] Last Admin: 10/11/17 17:45 Dose: Not Given Folic Acid (Folic Acid) 1 mg PO DAILY [facility] Last Admin: 10/11/17 11:42 Dose: 1 mg Haloperidol Lactate (Haldol) 5 mg IM Q6 PRN PRN Reason: Agitation Last Admin: 10/08/17 09:00 Dose: 5 mg Ibuprofen (Motrin Tab) 400 mg PO Q6 PRN PRN Reason: Pain, Mild (1-3) Loperamide HCl (Imodium) 2 mg PO Q8 PRN PRN Reason: Diarrhea Lorazepam (Ativan) 1 mg IVP Q6H PRN PRN Reason: Symptoms of alcohol withdrawl Ondansetron HCl (Zofran Tab) 4 mg PO Q8 PRN PRN Reason: Nausea/Vomiting Sertraline HCl (Zoloft) 25 mg PO DAILY [facility] Last Admin: 10/11/17 11:42 Dose: 25 mg Thiamine HCl (Vitamin B1 Tab) 100 mg PO DAILY [facility] Last Admin: 10/11/17 11:42 Dose: 100 mg Trazodone HCl (Desyrel) 50 mg PO HS [facility] Last Admin: 10/10/17 22:01 Dose: 50 mg - Labs Labs: 10/11/17 06:42 10/11/17 06:42 PT 13.8 SECONDS (9.7-12.2) H 10/05/17 10:27 INR 1.2 10/05/17 10:27 Attending/Attestation - Attestation I have personally seen and examined this patient.: Yes I have fully participated in the care of the patient.: Yes I have reviewed all pertinent clinical information, including history, physical exam and plan: Yes Notes (Text): Patient is with mitten restrain, lying on bed ,not agitated seen and examined,denies pain d/w Resident I agree with the documentation of the assessment and the plan We will change Ativan to PRN observe with 1:1 sitter and follow psychiatrist recommendation 10/11/17 18:26
--- NOTE | 2017-10-11 21:20 | PCM.PYCHPN ---
Psychiatric Progress Note - Psychiatric Progress Note Patient seen today, length of contact: 15 min Patient Chief Complaint: "I m chikis" Problems Identified/Issues Discussed: Patient seen and evaluated, chart reviewed and discussed with the nurse. As per the staff, pt appeared more organized and less internally preoccupied than before. He is less irritable and less agitated. He still appears paranoid and delusional. He still has mittens on his hands and h is on 1:1. Patient remained isolated, confined and withdrawn. Patient is compliant with medications and denies any side effects. Symptoms are improving but need more time to stabilize. Support and psychoeducation given. Medication Change: Yes (haldol) Medical Record Reviewed: Yes Mental Status Examination - Cognitive Function Orientation: Person, Place, Situation, Time Memory: Intact Attention: Poor Concentration: Poor Association: Loose Fund of Knowledge: Poor - Mood Mood: Depressed - Affect Affect: Broad - Speech Speech: Loud - Formal Thought Process Formal Thought Process: Hallucinations, Delusions, Paranoia, Loosening of associations - Suicidal Ideation Suicidal Ideation: No - Homicidal Ideation Homicidal Ideation: No Goal/Treatment Plan - Goal/Treatment Plan Need for Continued Stay: Severe depression anxiety, Severe functional impairment Progress Toward Problem(s) and Goals/Treatment Plan: -Alcohol detox with Librium -Vitamins for nutrition -As needed medications -All risks, benefits and alternatives of the meds discussed, and the pt agreed and understood. -Individual therapy daily -Supportive therapy and psychoeducation -[place] for abstinence -CBT for relapse prevention -Encourage MAT -Refer to rehab or IOP, and self-help groups -Teach healthy lifestyle methods, i.e. diet, exercise, meditation - haldol 5 mg PO BID -Zoloft 50 mg PO Ddaily - Trazodont 50 mg - Smoking Cessation Smoking Cessation Initiated: No
[2017-10-12 08:25] LABS: BASO # 0.1 K/uL (0.0-0.2); BASO % 0.7 % (0.0-2.0); EOS # 0.4 K/uL (0.0-0.7); EOS % 6.2 % (0.0-4.0); HEMOGLOBIN 12.7 g/dL (12.0-18.0); LYMPH # 0.9 K/uL (1.0-4.3); LYMPH % 13.1 % (20.0-40.0); MEAN CELL VOLUME 95.9 fL (80.0-94.0); MEAN CORPUSCULAR HEMOGLOBIN 34.6 pg (27.0-31.0); MEAN PLATELET VOLUME 8.6 fL (7.2-11.7); MONO # 0.7 K/uL (0.0-0.8); MONO % 9.5 % (0.0-10.0); NEUT # 5.1 K/uL (1.8-7.0); NEUT % 70.5 % (50.0-75.0); RBC 3.68 Mil/uL (4.40-5.90); RED CELL DISTRIBUTION WIDTH 12.4 % (11.5-14.5); WHITE BLOOD COUNT 7.3 K/uL (4.8-10.8)
[2017-10-12 08:42] LABS: ALBUMIN 3.2 g/dL (3.5-5.0); ALT/SGPT 38 U/L (21-72); AST/SGOT 81 U/L (17-59); BLOOD UREA NITROGEN 3 mg/dL (9-20); CALCIUM 8.5 mg/dl (8.6-10.4); GFR AFRICAN-AMERICAN > 60; GFR NON-AFRICAN AMERICAN > 60
[2017-10-12] MEDS ORDERED: Potassium Chloride 20 mEq ER Tab PO ONE (09:54)
--- NOTE | 2017-10-12 10:54 | CP.PCM.PN ---
<JezAureangela Dave - Last Filed: 10/12/17 11:18> Subjective - Date & Time of Evaluation Date of Evaluation: 10/12/17 Time of Evaluation: 07:00 - Subjective Subjective: Medicine progress note (Dr. Gomez's service) Patient was seen and examined at bedside. Patient was more awake today and able to answer a few questions; patient was oriented to location and person. Patient reports back discomfort because he has been in bed for a while. Before the encounter, patient was given Ativan for agitation, therefore, patient was quite drowsy, nonetheless, he was able to answer a few questions. Objective - Vital Signs/Intake and Output Vital Signs (last 24 hours): Temp Pulse Resp BP Pulse Ox 97.7 F 78 20 128/75 96 10/12/17 07:53 10/12/17 07:53 10/12/17 07:53 10/12/17 07:53 10/12/17 07:53 Intake and Output: 10/12/17 10/12/17 06:59 18:59 Intake Total 1150 Balance 1150 - Medications Medications: Current Medications Acetaminophen (Tylenol 325mg Tab) 650 mg PO Q6 PRN PRN Reason: Fever >100.4 F Chlordiazepoxide (Librium) 25 mg PO TID [facility] Diphenhydramine HCl (Benadryl) 50 mg IM Q6 PRN PRN Reason: Agitation Last Admin: 10/08/17 02:49 Dose: 50 mg Famotidine (Pepcid) 20 mg PO BID [facility] Last Admin: 10/12/17 08:54 Dose: 20 mg Folic Acid (Folic Acid) 1 mg PO DAILY [facility] Last Admin: 10/12/17 09:57 Dose: Not Given Haloperidol (Haldol) 5 mg PO BID [facility] Last Admin: 10/12/17 09:57 Dose: Not Given Haloperidol Lactate (Haldol) 5 mg IM Q6 PRN PRN Reason: Agitation Last Admin: 10/08/17 09:00 Dose: 5 mg Ibuprofen (Motrin Tab) 400 mg PO Q6 PRN PRN Reason: Pain, Mild (1-3) Last Admin: 10/12/17 08:55 Dose: 400 mg Loperamide HCl (Imodium) 2 mg PO Q8 PRN PRN Reason: Diarrhea Lorazepam (Ativan) 0.5 mg IVP Q6H PRN PRN Reason: Symptoms of alcohol withdrawl Ondansetron HCl (Zofran Tab) 4 mg PO Q8 PRN PRN Reason: Nausea/Vomiting Thiamine HCl (Vitamin B1 Tab) 100 mg PO DAILY [facility] Last Admin: 10/12/17 08:54 Dose: 100 mg - Labs Labs: 10/12/17 08:10 10/12/17 08:10 PT 13.8 SECONDS (9.7-12.2) H 10/05/17 10:27 INR 1.2 10/05/17 10:27 - Constitutional Appears: Well, No Acute Distress - Head Exam Head Exam: ATRAUMATIC, NORMAL INSPECTION - Eye Exam Eye Exam: EOMI, Normal appearance - ENT Exam ENT Exam: Mucous Membranes Dry - Respiratory Exam Respiratory Exam: Clear to Ausculation Bilateral, NORMAL BREATHING PATTERN. absent: Rhonchi, Wheezes - Cardiovascular Exam Cardiovascular Exam: REGULAR RHYTHM, +S1, +S2. absent: Murmur - GI/Abdominal Exam GI & Abdominal Exam: Soft, Normal Bowel Sounds. absent: Distended, Firm, Guarding, Rigid, Tenderness - Extremities Exam Extremities Exam: Normal Inspection. absent: Calf Tenderness, Pedal Edema - Neurological Exam Neurological Exam: Alert - Psychiatric Exam Psychiatric exam: Depressed - Skin Skin Exam: Normal Color Assessment and Plan (1) Alcohol withdrawal Assessment & Plan: Psychiatry Consult, Dr. Hernandez---> Help appreciated * Management as per recommendation * changed to 1mg IV Q6H PRN (10/10/17)---> decreased to 0.5mg IV q6h PRN * Librium 50 mg PO TID added 10/07--> Changed to Librium 25mg PO TID (10/12/17) * Imodium 2mg PO q8h prn for symptoms of diarrhea * Zofran 4mg PO Q8H prn for nausea * Haldol 5mg IM Q6 prn and Benadryl 50mg IM q6 prn and haldol 5mg PO BID for agitation ( Only to be given for severe agitation and aggressive behaviors) Management: -[facility] protocol; 1:1 Observation -Folic 1 tab PO daily -Thiamine 100mg PO daily - Monitor withdrawal symptoms - UDS: Negative Status: Acute (2) Depression Assessment & Plan: Psychiatry Consult, Dr. Hernandez---> Help appreciated Management as per recommendation Zoloft 25mg PO daily Status: Acute (3) Chest pain Assessment & Plan: Resolved EKG: Sinus Tachy with T-wave inversion lead III (09/29/17) Troponin negative X2 (09/29/17) Hold aspirin due to Thrombocytopenia Status: Acute (4) Thrombocytopenia Assessment & Plan: Resolved Continue to monitor with labs H/H stable; no sign of active bleeding Status: Acute (5) Encounter for screening and preventative care Assessment & Plan: HgbA1C: 5.4 Lipid panel: TGL: 110, Cholesterol: 237, LDL: 114 and HDL: 95 * Lifestyle modification Hepatitis and HIV: Negative RPR nonreactive Status: Acute (6) Electrolyte imbalance Assessment & Plan: Intermittent improvement Hypokalemia and hypomagnesemia * Hypomagnesemia resolved * Hypokalemia persists; repleted appropriately * Continue to monitor with am labs Status: Acute (7) Prophylactic measure Assessment & Plan: GI: Pepcid 20mg PO BID DVT: SCDs, acute thrombocyopneia resolved, started lovenox 30mg SC daily. Will continue to monitor platelet counts with labs Disposition: Patient not stable for transfer and admit to inpatient psychiatry All plans and management discussed with attending, Dr. Gomez Status: Acute <Massiel Gomez - Last Filed: 10/12/17 16:19> Objective - Vital Signs/Intake and Output Vital Signs (last 24 hours): Temp Pulse Resp BP Pulse Ox 97.7 F 78 20 128/75 96 10/12/17 07:53 10/12/17 15:55 10/12/17 07:53 10/12/17 15:55 10/12/17 15:55 Intake and Output: 10/12/17 10/12/17 06:59 18:59 Intake Total 1150 Balance 1150 - Medications Medications: Current Medications Acetaminophen (Tylenol 325mg Tab) 650 mg PO Q6 PRN PRN Reason: Fever >100.4 F Chlordiazepoxide (Librium) 25 mg PO TID [facility] Last Admin: 10/12/17 14:04 Dose: 25 mg Diphenhydramine HCl (Benadryl) 50 mg IM Q6 PRN PRN Reason: Agitation Last Admin: 10/08/17 02:49 Dose: 50 mg Enoxaparin Sodium (Lovenox) 40 mg SC DAILY [facility] Last Admin: 10/12/17 11:57 Dose: 40 mg Famotidine (Pepcid) 20 mg PO BID [facility] Last Admin: 10/12/17 11:58 Dose: Not Given Folic Acid (Folic Acid) 1 mg PO DAILY [facility] Last Admin: 10/12/17 09:57 Dose: Not Given Haloperidol (Haldol) 5 mg PO BID [facility] Last Admin: 10/12/17 09:57 Dose: Not Given Haloperidol Lactate (Haldol) 5 mg IM Q6 PRN PRN Reason: Agitation Last Admin: 10/08/17 09:00 Dose: 5 mg Ibuprofen (Motrin Tab) 400 mg PO Q6 PRN PRN Reason: Pain, Mild (1-3) Last Admin: 10/12/17 08:55 Dose: 400 mg Loperamide HCl (Imodium) 2 mg PO Q8 PRN PRN Reason: Diarrhea Lorazepam (Ativan) 0.5 mg IVP Q6H PRN PRN Reason: Symptoms of alcohol withdrawl Ondansetron HCl (Zofran Tab) 4 mg PO Q8 PRN PRN Reason: Nausea/Vomiting Thiamine HCl (Vitamin B1 Tab) 100 mg PO DAILY [facility] Last Admin: 10/12/17 12:07 Dose: Not Given - Labs Labs: 10/12/17 08:10 10/12/17 08:10 PT 13.8 SECONDS (9.7-12.2) H 10/05/17 10:27 INR 1.2 10/05/17 10:27 Attending/Attestation - Attestation I have personally seen and examined this patient.: Yes I have fully participated in the care of the patient.: Yes I have reviewed all pertinent clinical information, including history, physical exam and plan: Yes Notes (Text): Patient was seen and examined D/W RN. patient was agitated and pulling line. He was given Ativan on examination he is sleepy but he was able to answer simple questions He was seen by psychiatrist and started on haldol we will reduce the dose of Ativan and taper the dose of Librium PT assessment d/w The resident I agree with the documentation of the assessment and the plan 10/12/17 16:15
[2017-10-12] MEDS: Enoxaparin 40 mg Syringe SC SCH (11:57)
[2017-10-13 08:34] LABS: BASO # 0.1 K/uL (0.0-0.2); BASO % 0.9 % (0.0-2.0); EOS # 0.5 K/uL (0.0-0.7); EOS % 6.7 % (0.0-4.0); HEMOGLOBIN 13.1 g/dL (12.0-18.0); LYMPH % 12.2 % (20.0-40.0); MEAN CELL VOLUME 95.8 fL (80.0-94.0); MEAN CORPUSCULAR HEMOGLOBIN 33.8 pg (27.0-31.0); MEAN CORPUSCULAR HGB CONC 35.2 g/dL (33.0-37.0); MONO # 0.7 K/uL (0.0-0.8); MONO % 9.1 % (0.0-10.0); NEUT # 5.7 K/uL (1.8-7.0); NEUT % 71.1 % (50.0-75.0); NRBC % 0.1 % (0.0-2.0); RBC 3.87 Mil/uL (4.40-5.90); RED CELL DISTRIBUTION WIDTH 12.6 % (11.5-14.5)
[2017-10-13 09:24] LABS: ALBUMIN 3.4 g/dL (3.5-5.0); ALT/SGPT 35 U/L (21-72); AST/SGOT 74 U/L (17-59); BLOOD UREA NITROGEN 5 mg/dL (9-20); CALCIUM 8.8 mg/dl (8.6-10.4); GFR AFRICAN-AMERICAN > 60; GFR NON-AFRICAN AMERICAN > 60; MAGNESIUM 1.9 mg/dL (1.6-2.3)
[2017-10-13] MEDS: Enoxaparin 40 mg Syringe SC SCH (10:13)
--- NOTE | 2017-10-13 13:51 | CP.PCM.PN ---
<Janett Story E - Last Filed: 10/13/17 14:00> Subjective - Date & Time of Evaluation Date of Evaluation: 10/13/17 Time of Evaluation: 07:15 - Subjective Subjective: Medicine progress note (Dr. Gomez's service) Patient was seen and examined at bedside. Patient was more awake today and able to answer a few questions; patient was oriented to location and person. Patient reports that he is doing well. Objective - Vital Signs/Intake and Output Vital Signs (last 24 hours): Temp Pulse Resp BP Pulse Ox 99.9 F H 73 20 128/79 97 10/13/17 07:00 10/13/17 07:00 10/13/17 07:00 10/13/17 07:00 10/13/17 07:00 Intake and Output: 10/13/17 10/13/17 06:59 18:59 Intake Total 300 500 Output Total 350 Balance -50 500 - Medications Medications: Current Medications Acetaminophen (Tylenol 325mg Tab) 650 mg PO Q6 PRN PRN Reason: Fever >100.4 F Chlordiazepoxide (Librium) 10 mg PO TID [facility] Diphenhydramine HCl (Benadryl) 50 mg IM Q6 PRN PRN Reason: Agitation Last Admin: 10/08/17 02:49 Dose: 50 mg Enoxaparin Sodium (Lovenox) 40 mg SC DAILY [facility] Last Admin: 10/13/17 10:13 Dose: 40 mg Famotidine (Pepcid) 20 mg PO BID [facility] Last Admin: 10/13/17 10:12 Dose: 20 mg Folic Acid (Folic Acid) 1 mg PO DAILY [facility] Last Admin: 10/13/17 10:12 Dose: 1 mg Haloperidol (Haldol) 5 mg PO BID [facility] Last Admin: 10/13/17 10:13 Dose: Not Given Haloperidol Lactate (Haldol) 5 mg IM Q6 PRN PRN Reason: Agitation Last Admin: 10/08/17 09:00 Dose: 5 mg Ibuprofen (Motrin Tab) 400 mg PO Q6 PRN PRN Reason: Pain, Mild (1-3) Last Admin: 10/12/17 08:55 Dose: 400 mg Loperamide HCl (Imodium) 2 mg PO Q8 PRN PRN Reason: Diarrhea Lorazepam (Ativan) 0.5 mg IVP Q6H PRN PRN Reason: Symptoms of alcohol withdrawl Ondansetron HCl (Zofran Tab) 4 mg PO Q8 PRN PRN Reason: Nausea/Vomiting Thiamine HCl (Vitamin B1 Tab) 100 mg PO DAILY [facility] Last Admin: 10/13/17 10:12 Dose: 100 mg - Labs Labs: 10/13/17 08:24 10/13/17 08:24 PT 13.8 SECONDS (9.7-12.2) H 10/05/17 10:27 INR 1.2 10/05/17 10:27 - Constitutional Appears: Well, No Acute Distress - Head Exam Head Exam: ATRAUMATIC, NORMAL INSPECTION - Eye Exam Eye Exam: EOMI - ENT Exam ENT Exam: Mucous Membranes Dry - Respiratory Exam Respiratory Exam: Clear to Ausculation Bilateral, NORMAL BREATHING PATTERN. absent: Rhonchi, Wheezes - Cardiovascular Exam Cardiovascular Exam: REGULAR RHYTHM, +S1, +S2. absent: Murmur - GI/Abdominal Exam GI & Abdominal Exam: Soft. absent: Firm, Guarding, Rigid, Tenderness - Extremities Exam Extremities Exam: Normal Inspection. absent: Calf Tenderness, Pedal Edema - Neurological Exam Neurological Exam: Alert, Awake, Oriented x3 - Psychiatric Exam Psychiatric exam: Depressed - Skin Skin Exam: Normal Color Assessment and Plan (1) Alcohol withdrawal Assessment & Plan: Psychiatry Consult, Dr. Hernandez---> Help appreciated * Management as per recommendation * changed to 1mg IV Q6H PRN (10/10/17)---> decreased to 0.5mg IV q6h PRN * Librium 25mg PO TID -----> changed to librium 10mg PO TID (10/13/17) * Imodium 2mg PO q8h prn for symptoms of diarrhea * Zofran 4mg PO Q8H prn for nausea * Haldol 5mg IM Q6 prn and Benadryl 50mg IM q6 prn * Haldol 5mg PO for agitation (Held ) Management: -[facility] protocol; 1:1 Observation -Folic 1 tab PO daily -Thiamine 100mg PO daily -Multivitamins 1 tab po daily - Monitor withdrawal symptoms - UDS: Negative Status: Acute (2) Chest pain Assessment & Plan: Resolved EKG: Sinus Tachy with T-wave inversion lead III (09/29/17) Troponin negative X2 (09/29/17) Hold aspirin due to Thrombocytopenia Status: Acute (3) Thrombocytopenia Assessment & Plan: Resolved Continue to monitor with labs H/H stable; no sign of active bleeding Status: Acute (4) Encounter for screening and preventative care Assessment & Plan: HgbA1C: 5.4 Lipid panel: TGL: 110, Cholesterol: 237, LDL: 114 and HDL: 95 * Lifestyle modification Hepatitis and HIV: Negative RPR nonreactive Status: Acute (5) Electrolyte imbalance Assessment & Plan: Intermittent improvement Hypokalemia and hypomagnesemia * Hypomagnesemia resolved * Hypokalemia persists; repleted appropriately * Continue to monitor with am labs Status: Acute (6) Prophylactic measure Assessment & Plan: GI: Pepcid 20mg PO BID DVT: SCDs, acute thrombocyopneia resolved, started lovenox 30mg SC daily. Will continue to monitor platelet counts with labs PT and OT Disposition: Patient need more physical and occupational therapy All plans and management discussed with attending, Dr. Gomez Status: Acute <Massiel Gomez - Last Filed: 10/13/17 17:31> Objective - Vital Signs/Intake and Output Vital Signs (last 24 hours): Temp Pulse Resp BP Pulse Ox 98.6 F 70 20 106/67 95 10/13/17 16:00 10/13/17 16:00 10/13/17 16:00 10/13/17 16:00 10/13/17 16:00 Intake and Output: 10/13/17 10/13/17 06:59 18:59 Intake Total 300 500 Output Total 350 600 Balance -50 -100 - Medications Medications: Current Medications Acetaminophen (Tylenol 325mg Tab) 650 mg PO Q6 PRN PRN Reason: Fever >100.4 F Chlordiazepoxide (Librium) 10 mg PO TID [facility] Last Admin: 10/13/17 17:19 Dose: 10 mg Diphenhydramine HCl (Benadryl) 50 mg IM Q6 PRN PRN Reason: Agitation Last Admin: 10/08/17 02:49 Dose: 50 mg Enoxaparin Sodium (Lovenox) 40 mg SC DAILY [facility] Last Admin: 10/13/17 10:13 Dose: 40 mg Famotidine (Pepcid) 20 mg PO BID [facility] Last Admin: 10/13/17 17:19 Dose: 20 mg Folic Acid (Folic Acid) 1 mg PO DAILY [facility] Last Admin: 10/13/17 10:12 Dose: 1 mg Haloperidol (Haldol) 5 mg PO BID [facility] Last Admin: 10/13/17 10:13 Dose: Not Given Haloperidol Lactate (Haldol) 5 mg IM Q6 PRN PRN Reason: Agitation Last Admin: 10/08/17 09:00 Dose: 5 mg Ibuprofen (Motrin Tab) 400 mg PO Q6 PRN PRN Reason: Pain, Mild (1-3) Last Admin: 10/12/17 08:55 Dose: 400 mg Loperamide HCl (Imodium) 2 mg PO Q8 PRN PRN Reason: Diarrhea Lorazepam (Ativan) 0.5 mg IVP Q6H PRN PRN Reason: Symptoms of alcohol withdrawl Multivitamins (Hexavitamin) 1 tab PO DAILY [facility] Last Admin: 10/13/17 14:19 Dose: 1 tab Ondansetron HCl (Zofran Tab) 4 mg PO Q8 PRN PRN Reason: Nausea/Vomiting Thiamine HCl (Vitamin B1 Tab) 100 mg PO DAILY [facility] Last Admin: 10/13/17 10:12 Dose: 100 mg - Labs Labs: 10/13/17 08:24 10/13/17 08:24 PT 13.8 SECONDS (9.7-12.2) H 10/05/17 10:27 INR 1.2 10/05/17 10:27 Attending/Attestation - Attestation I have personally seen and examined this patient.: Yes I have fully participated in the care of the patient.: Yes I have reviewed all pertinent clinical information, including history, physical exam and plan: Yes Notes (Text): seen and examined. patient is sleepy we will hold Haldol,ativan PRN only,reduce the dose of Librium d/w PT d/w the resident I agree with the resident's documentation of the assessment and the plan
[2017-10-13] MEDS ORDERED: Potassium Chloride 20 mEq ER Tab PO ONE (14:04)
[2017-10-13] MEDS: Multiple Vitamins Tab PO SCH (14:19)
[2017-10-14 08:06] LABS: BASO # 0.1 K/uL (0.0-0.2); BASO % 0.9 % (0.0-2.0); EOS # 0.6 K/uL (0.0-0.7); HEMOGLOBIN 14.3 g/dL (12.0-18.0); LYMPH # 1.3 K/uL (1.0-4.3); LYMPH % 12.8 % (20.0-40.0); MEAN CORPUSCULAR HEMOGLOBIN 33.6 pg (27.0-31.0); MEAN PLATELET VOLUME 8.6 fL (7.2-11.7); MONO # 0.7 K/uL (0.0-0.8); MONO % 6.8 % (0.0-10.0); NEUT # 7.3 K/uL (1.8-7.0); NEUT % 73.5 % (50.0-75.0); NRBC % 0.1 % (0.0-2.0); RBC 4.26 Mil/uL (4.40-5.90); RED CELL DISTRIBUTION WIDTH 12.9 % (11.5-14.5)
[2017-10-14 08:17] LABS: ALBUMIN 3.7 g/dL (3.5-5.0); ALT/SGPT 41 U/L (21-72); AST/SGOT 82 U/L (17-59); BLOOD UREA NITROGEN 6 mg/dL (9-20); CALCIUM 9.2 mg/dl (8.6-10.4); GFR AFRICAN-AMERICAN > 60; GFR NON-AFRICAN AMERICAN > 60; MAGNESIUM 1.8 mg/dL (1.6-2.3)
[2017-10-14] MEDS: Multiple Vitamins Tab PO SCH (09:04)
[2017-10-14] MEDS: Enoxaparin 40 mg Syringe SC SCH (09:05)
--- NOTE | 2017-10-14 15:50 | CP.PCM.PN ---
<Cornwall BridgeAureangela E - Last Filed: 10/14/17 15:47> Subjective - Date & Time of Evaluation Date of Evaluation: 10/14/17 Time of Evaluation: 07:20 - Subjective Subjective: Medicine progress note (Dr. Gomez's service) Patient was seen and examined at bedside. Patient was more awake today and able to answer a few questions; patient was oriented to location and person. Patient reports that he is doing well. Patient was able to ambulate with me with my assistance; still with unsteady gait. He was able to get out of bed to chair today and have breakfast. Objective - Vital Signs/Intake and Output Vital Signs (last 24 hours): Temp Pulse Resp BP Pulse Ox 98.2 F 73 20 114/70 96 10/14/17 08:21 10/14/17 08:21 10/14/17 08:21 10/14/17 08:21 10/14/17 08:21 Intake and Output: 10/14/17 10/14/17 06:59 18:59 Intake Total 300 360 Output Total 600 Balance -300 360 - Medications Medications: Current Medications Acetaminophen (Tylenol 325mg Tab) 650 mg PO Q6 PRN PRN Reason: Fever >100.4 F Chlordiazepoxide (Librium) 10 mg PO TID [facility] Last Admin: 10/14/17 13:39 Dose: 10 mg Diphenhydramine HCl (Benadryl) 50 mg IM Q6 PRN PRN Reason: Agitation Last Admin: 10/08/17 02:49 Dose: 50 mg Enoxaparin Sodium (Lovenox) 40 mg SC DAILY [facility] Last Admin: 10/14/17 09:05 Dose: 40 mg Famotidine (Pepcid) 20 mg PO BID [facility] Last Admin: 10/14/17 09:04 Dose: 20 mg Folic Acid (Folic Acid) 1 mg PO DAILY [facility] Last Admin: 10/14/17 09:04 Dose: 1 mg Haloperidol (Haldol) 5 mg PO BID [facility] Last Admin: 10/13/17 10:13 Dose: Not Given Haloperidol Lactate (Haldol) 5 mg IM Q6 PRN PRN Reason: Agitation Last Admin: 10/08/17 09:00 Dose: 5 mg Ibuprofen (Motrin Tab) 400 mg PO Q6 PRN PRN Reason: Pain, Mild (1-3) Last Admin: 10/12/17 08:55 Dose: 400 mg Loperamide HCl (Imodium) 2 mg PO Q8 PRN PRN Reason: Diarrhea Lorazepam (Ativan) 0.5 mg IVP Q6H PRN PRN Reason: Symptoms of alcohol withdrawl Multivitamins (Hexavitamin) 1 tab PO DAILY [facility] Last Admin: 10/14/17 09:04 Dose: 1 tab Ondansetron HCl (Zofran Tab) 4 mg PO Q8 PRN PRN Reason: Nausea/Vomiting Thiamine HCl (Vitamin B1 Tab) 100 mg PO DAILY [facility] Last Admin: 10/14/17 09:04 Dose: 100 mg - Labs Labs: 10/14/17 07:47 10/14/17 07:47 PT 13.8 SECONDS (9.7-12.2) H 10/05/17 10:27 INR 1.2 10/05/17 10:27 - Constitutional Appears: No Acute Distress - Head Exam Head Exam: ATRAUMATIC - Eye Exam Eye Exam: EOMI, Normal appearance - ENT Exam ENT Exam: Mucous Membranes Dry - Respiratory Exam Respiratory Exam: Clear to Ausculation Bilateral, NORMAL BREATHING PATTERN. absent: Rhonchi, Wheezes, Respiratory Distress - Cardiovascular Exam Cardiovascular Exam: REGULAR RHYTHM, +S1, +S2. absent: Murmur - GI/Abdominal Exam GI & Abdominal Exam: Soft, Normal Bowel Sounds. absent: Firm, Guarding, Rigid, Tenderness - Neurological Exam Neurological Exam: Alert, Awake, Oriented x3 - Psychiatric Exam Psychiatric exam: Normal Affect, Normal Mood - Skin Skin Exam: Normal Color Assessment and Plan (1) Alcohol withdrawal Assessment & Plan: Psychiatry Consult, Dr. Hernandez---> Help appreciated * Management as per recommendation * changed to 1mg IV Q6H PRN (10/10/17)---> decreased to 0.5mg IV q6h PRN * Librium 25mg PO TID -----> changed to librium 10mg PO TID (10/13/17) * Imodium 2mg PO q8h prn for symptoms of diarrhea * Zofran 4mg PO Q8H prn for nausea * Haldol 5mg IM Q6 prn and Benadryl 50mg IM q6 prn * Haldol 5mg PO for agitation (Held 10/13/17) Management: -[facility] protocol; 1:1 Observation -Folic 1 tab PO daily -Thiamine 100mg PO daily -Multivitamins 1 tab po daily - Monitor withdrawal symptoms - UDS: Negative Status: Acute (2) Chest pain Assessment & Plan: Resolved EKG: Sinus Tachy with T-wave inversion lead III (09/29/17) Troponin negative X2 (09/29/17) Hold aspirin due to Thrombocytopenia Status: Acute (3) Thrombocytopenia Assessment & Plan: Resolved Continue to monitor with labs H/H stable; no sign of active bleeding Status: Acute (4) Encounter for screening and preventative care Assessment & Plan: HgbA1C: 5.4 Lipid panel: TGL: 110, Cholesterol: 237, LDL: 114 and HDL: 95 * Lifestyle modification Hepatitis and HIV: Negative RPR nonreactive Status: Acute (5) Electrolyte imbalance Assessment & Plan: Intermittent improvement Hypokalemia and hypomagnesemia * Hypomagnesemia resolved * Hypokalemia resolved * Continue to monitor with am labs Status: Acute (6) Prophylactic measure Assessment & Plan: GI: Pepcid 20mg PO BID DVT: SCDs, acute thrombocyopneia resolved, started lovenox 30mg SC daily. Will continue to monitor platelet counts with labs PT and OT Disposition: Patient need more physical and occupational therapy due to unsteady gait All plans and management discussed with attending, Dr. Gomez Status: Acute <Massiel Gomez - Last Filed: 10/14/17 17:53> Objective - Vital Signs/Intake and Output Vital Signs (last 24 hours): Temp Pulse Resp BP Pulse Ox 99.2 F 76 20 112/61 92 L 10/14/17 16:00 10/14/17 16:00 10/14/17 16:00 10/14/17 16:00 10/14/17 16:00 Intake and Output: 10/14/17 10/14/17 06:59 18:59 Intake Total 300 360 Output Total 600 Balance -300 360 - Medications Medications: Current Medications Acetaminophen (Tylenol 325mg Tab) 650 mg PO Q6 PRN PRN Reason: Fever >100.4 F Chlordiazepoxide (Librium) 10 mg PO TID [facility] Last Admin: 10/14/17 17:12 Dose: 10 mg Diphenhydramine HCl (Benadryl) 50 mg IM Q6 PRN PRN Reason: Agitation Last Admin: 10/08/17 02:49 Dose: 50 mg Enoxaparin Sodium (Lovenox) 40 mg SC DAILY [facility] Last Admin: 10/14/17 09:05 Dose: 40 mg Famotidine (Pepcid) 20 mg PO BID [facility] Last Admin: 10/14/17 17:12 Dose: 20 mg Folic Acid (Folic Acid) 1 mg PO DAILY [facility] Last Admin: 10/14/17 09:04 Dose: 1 mg Haloperidol (Haldol) 5 mg PO BID [facility] Last Admin: 10/13/17 10:13 Dose: Not Given Haloperidol Lactate (Haldol) 5 mg IM Q6 PRN PRN Reason: Agitation Last Admin: 10/08/17 09:00 Dose: 5 mg Ibuprofen (Motrin Tab) 400 mg PO Q6 PRN PRN Reason: Pain, Mild (1-3) Last Admin: 10/12/17 08:55 Dose: 400 mg Loperamide HCl (Imodium) 2 mg PO Q8 PRN PRN Reason: Diarrhea Lorazepam (Ativan) 0.5 mg IVP Q6H PRN PRN Reason: Symptoms of alcohol withdrawl Multivitamins (Hexavitamin) 1 tab PO DAILY [facility] Last Admin: 10/14/17 09:04 Dose: 1 tab Ondansetron HCl (Zofran Tab) 4 mg PO Q8 PRN PRN Reason: Nausea/Vomiting Thiamine HCl (Vitamin B1 Tab) 100 mg PO DAILY [facility] Last Admin: 10/14/17 09:04 Dose: 100 mg - Labs Labs: 10/14/17 07:47 10/14/17 07:47 PT 13.8 SECONDS (9.7-12.2) H 10/05/17 10:27 INR 1.2 10/05/17 10:27 Attending/Attestation - Attestation I have personally seen and examined this patient.: Yes I have fully participated in the care of the patient.: Yes I have reviewed all pertinent clinical information, including history, physical exam and plan: Yes Notes (Text): Seen and examined Patient is more alert and sitting on the chair Unsteady gait. I agree with the resident's documentation of the assessment and the plan We will avoid sedatives ,continue librium 10mg tid and see him tomorrow 10/14/17 17:51
--- NOTE | 2017-10-15 00:20 | CP.PCM.PN ---
<Cindy Haskins - Last Filed: 10/15/17 00:18> Subjective - Date & Time of Evaluation Date of Evaluation: 10/15/17 Time of Evaluation: 00:18 - Subjective Subjective: Patient seen and examined at bedside. Patient resting comfortably in bed with no new complaints at this time. Patient drowsy but able to answer my questions appropriately. Patient denies chest pain, SOB, abdominal pain, n/v/d/c, calf pain. Objective - Vital Signs/Intake and Output Vital Signs (last 24 hours): Temp Pulse Resp BP Pulse Ox 99 F 72 20 116/68 95 10/14/17 23:20 10/14/17 23:20 10/14/17 23:20 10/14/17 23:20 10/14/17 23:20 Intake and Output: 10/14/17 10/15/17 18:59 06:59 Intake Total 360 150 Balance 360 150 - Medications Medications: Current Medications Acetaminophen (Tylenol 325mg Tab) 650 mg PO Q6 PRN PRN Reason: Fever >100.4 F Chlordiazepoxide (Librium) 10 mg PO TID [facility] Last Admin: 10/14/17 17:12 Dose: 10 mg Diphenhydramine HCl (Benadryl) 50 mg IM Q6 PRN PRN Reason: Agitation Last Admin: 10/08/17 02:49 Dose: 50 mg Enoxaparin Sodium (Lovenox) 40 mg SC DAILY [facility] Last Admin: 10/14/17 09:05 Dose: 40 mg Famotidine (Pepcid) 20 mg PO BID [facility] Last Admin: 10/14/17 17:12 Dose: 20 mg Folic Acid (Folic Acid) 1 mg PO DAILY [facility] Last Admin: 10/14/17 09:04 Dose: 1 mg Haloperidol (Haldol) 5 mg PO BID [facility] Last Admin: 10/13/17 10:13 Dose: Not Given Haloperidol Lactate (Haldol) 5 mg IM Q6 PRN PRN Reason: Agitation Last Admin: 10/08/17 09:00 Dose: 5 mg Ibuprofen (Motrin Tab) 400 mg PO Q6 PRN PRN Reason: Pain, Mild (1-3) Last Admin: 10/12/17 08:55 Dose: 400 mg Loperamide HCl (Imodium) 2 mg PO Q8 PRN PRN Reason: Diarrhea Lorazepam (Ativan) 0.5 mg IVP Q6H PRN PRN Reason: Symptoms of alcohol withdrawl Multivitamins (Hexavitamin) 1 tab PO DAILY [facility] Last Admin: 10/14/17 09:04 Dose: 1 tab Ondansetron HCl (Zofran Tab) 4 mg PO Q8 PRN PRN Reason: Nausea/Vomiting Thiamine HCl (Vitamin B1 Tab) 100 mg PO DAILY [facility] Last Admin: 10/14/17 09:04 Dose: 100 mg - Labs Labs: 10/14/17 07:47 10/14/17 07:47 PT 13.8 SECONDS (9.7-12.2) H 10/05/17 10:27 INR 1.2 10/05/17 10:27 - Additional Findings Additional findings: - Constitutional Appears: No Acute Distress - Head Exam Head Exam: ATRAUMATIC - Eye Exam Eye Exam: EOMI, Normal appearance - ENT Exam ENT Exam: Mucous Membranes Dry - Respiratory Exam Respiratory Exam: Clear to Ausculation Bilateral, NORMAL BREATHING PATTERN. absent: Rhonchi, Wheezes, Respiratory Distress - Cardiovascular Exam Cardiovascular Exam: REGULAR RHYTHM, +S1, +S2. absent: Murmur - GI/Abdominal Exam GI & Abdominal Exam: Soft, Normal Bowel Sounds. absent: Firm, Guarding, Rigid, Tenderness - Neurological Exam Neurological Exam: Alert, Awake, Oriented x3 - Psychiatric Exam Psychiatric exam: Normal Affect, Normal Mood - Skin Skin Exam: Normal Color Assessment and Plan - Assessment and Plan (Free Text) Plan: (1) Alcohol withdrawal Assessment & Plan: Psychiatry Consult, Dr. Hernandez---> Help appreciated * Management as per recommendation * changed to 1mg IV Q6H PRN (10/10/17)---> decreased to 0.5mg IV q6h PRN * Librium 25mg PO TID -----> changed to librium 10mg PO TID (10/13/17) * Imodium 2mg PO q8h prn for symptoms of diarrhea * Zofran 4mg PO Q8H prn for nausea * Haldol 5mg IM Q6 prn and Benadryl 50mg IM q6 prn * Haldol 5mg PO for agitation (Held 10/13/17) Management: -[facility] protocol; 1:1 Observation -Folic 1 tab PO daily -Thiamine 100mg PO daily -Multivitamins 1 tab po daily - Monitor withdrawal symptoms - UDS: Negative Status: Acute (2) Chest pain Assessment & Plan: Resolved EKG: Sinus Tachy with T-wave inversion lead III (09/29/17) Troponin negative X2 (09/29/17) Hold aspirin due to Thrombocytopenia Status: Acute (3) Thrombocytopenia Assessment & Plan: Resolved Continue to monitor with labs H/H stable; no sign of active bleeding Status: Acute (4) Encounter for screening and preventative care Assessment & Plan: HgbA1C: 5.4 Lipid panel: TGL: 110, Cholesterol: 237, LDL: 114 and HDL: 95 * Lifestyle modification Hepatitis and HIV: Negative RPR nonreactive Status: Acute (5) Electrolyte imbalance Assessment & Plan: Intermittent improvement Hypokalemia and hypomagnesemia * Hypomagnesemia resolved * Hypokalemia resolved * Continue to monitor with am labs Status: Acute (6) Prophylactic measure Assessment & Plan: GI: Pepcid 20mg PO BID DVT: SCDs, acute thrombocyopneia resolved, started lovenox 30mg SC daily. Will continue to monitor platelet counts with labs PT and OT Disposition: Patient need more physical and occupational therapy due to unsteady gait Status: Acute <Massiel Gomez - Last Filed: 10/16/17 14:59> Objective - Vital Signs/Intake and Output Vital Signs (last 24 hours): Temp Pulse Resp BP Pulse Ox 98.2 F 94 H 20 106/64 96 10/16/17 08:33 10/16/17 08:33 10/16/17 08:33 10/16/17 08:33 10/16/17 08:33 - Medications Medications: Current Medications Acetaminophen (Tylenol 325mg Tab) 650 mg PO Q6 PRN PRN Reason: Fever >100.4 F Chlordiazepoxide (Librium) 10 mg PO TID [facility] Last Admin: 10/16/17 14:45 Dose: Not Given Diphenhydramine HCl (Benadryl) 50 mg IM Q6 PRN PRN Reason: Agitation Last Admin: 10/08/17 02:49 Dose: 50 mg Enoxaparin Sodium (Lovenox) 40 mg SC DAILY [facility] Last Admin: 10/16/17 10:28 Dose: 40 mg Famotidine (Pepcid) 20 mg PO BID [facility] Last Admin: 10/16/17 10:31 Dose: 20 mg Folic Acid (Folic Acid) 1 mg PO DAILY [facility] Last Admin: 10/16/17 10:30 Dose: 1 mg Haloperidol (Haldol) 5 mg PO BID [facility] Last Admin: 10/13/17 10:13 Dose: Not Given Haloperidol Lactate (Haldol) 5 mg IM Q6 PRN PRN Reason: Agitation Last Admin: 10/08/17 09:00 Dose: 5 mg Ibuprofen (Motrin Tab) 400 mg PO Q6 PRN PRN Reason: Pain, Mild (1-3) Last Admin: 10/12/17 08:55 Dose: 400 mg Loperamide HCl (Imodium) 2 mg PO Q8 PRN PRN Reason: Diarrhea Lorazepam (Ativan) 0.5 mg IVP Q6H PRN PRN Reason: Symptoms of alcohol withdrawl Multivitamins (Hexavitamin) 1 tab PO DAILY [facility] Last Admin: 10/16/17 10:30 Dose: 1 tab Ondansetron HCl (Zofran Tab) 4 mg PO Q8 PRN PRN Reason: Nausea/Vomiting Thiamine HCl (Vitamin B1 Tab) 100 mg PO DAILY [facility] Last Admin: 10/16/17 10:31 Dose: 100 mg - Labs Labs: 10/16/17 08:42 10/16/17 08:42 PT 13.8 SECONDS (9.7-12.2) H 10/05/17 10:27 INR 1.2 10/05/17 10:27 Attending/Attestation - Attestation I have personally seen and examined this patient.: Yes I have fully participated in the care of the patient.: Yes I have reviewed all pertinent clinical information, including history, physical exam and plan: Yes Notes (Text): Patient was seen and examined He is more alert and cooperative But unsteady gait/high fall risk/not ready for discharge continue Librium Observe I agree with the resident's documentation of the assessment and the plan
[2017-10-15 08:37] LABS: BASO # 0.1 K/uL (0.0-0.2); BASO % 0.9 % (0.0-2.0); EOS # 0.6 K/uL (0.0-0.7); EOS % 5.5 % (0.0-4.0); HEMOGLOBIN 14.7 g/dL (12.0-18.0); LYMPH # 1.8 K/uL (1.0-4.3); LYMPH % 16.3 % (20.0-40.0); MEAN CELL VOLUME 95.7 fL (80.0-94.0); MEAN CORPUSCULAR HEMOGLOBIN 33.8 pg (27.0-31.0); MEAN CORPUSCULAR HGB CONC 35.4 g/dL (33.0-37.0); MEAN PLATELET VOLUME 8.6 fL (7.2-11.7); MONO # 0.7 K/uL (0.0-0.8); MONO % 6.2 % (0.0-10.0); NEUT # 7.7 K/uL (1.8-7.0); NEUT % 71.1 % (50.0-75.0); NRBC % 0.1 % (0.0-2.0); RBC 4.33 Mil/uL (4.40-5.90); RED CELL DISTRIBUTION WIDTH 12.9 % (11.5-14.5); WHITE BLOOD COUNT 10.8 K/uL (4.8-10.8)
[2017-10-15 08:44] LABS: ALBUMIN 3.7 g/dL (3.5-5.0); ALT/SGPT 47 U/L (21-72); AST/SGOT 105 U/L (17-59); BLOOD UREA NITROGEN 6 mg/dL (9-20); CALCIUM 9.2 mg/dl (8.6-10.4); GFR AFRICAN-AMERICAN > 60; GFR NON-AFRICAN AMERICAN > 60; MAGNESIUM 1.9 mg/dL (1.6-2.3)
[2017-10-15] MEDS: Enoxaparin 40 mg Syringe SC SCH (10:14)
[2017-10-15] MEDS: Multiple Vitamins Tab PO SCH (10:15)
--- NOTE | 2017-10-16 04:02 | CP.PCM.PN ---
<Cindy Haskins - Last Filed: 10/16/17 04:00> Subjective - Date & Time of Evaluation Date of Evaluation: 10/16/17 Time of Evaluation: 04:01 - Subjective Subjective: Patient seen and examined at bedside. Patient resting comfortably in bed with no new complaints at this time. Patient appears tired but is oriented. Patient denies chest pain, SOB, abdominal pain, n/v/d/c, calf pain. Objective - Vital Signs/Intake and Output Vital Signs (last 24 hours): Temp Pulse Resp BP Pulse Ox 98.4 F 81 20 106/61 98 10/16/17 00:00 10/16/17 00:00 10/16/17 00:00 10/16/17 00:00 10/16/17 00:00 Intake and Output: 10/15/17 10/16/17 18:59 06:59 Intake Total 240 Balance 240 - Medications Medications: Current Medications Acetaminophen (Tylenol 325mg Tab) 650 mg PO Q6 PRN PRN Reason: Fever >100.4 F Chlordiazepoxide (Librium) 10 mg PO TID [facility] Last Admin: 10/15/17 17:53 Dose: 10 mg Diphenhydramine HCl (Benadryl) 50 mg IM Q6 PRN PRN Reason: Agitation Last Admin: 10/08/17 02:49 Dose: 50 mg Enoxaparin Sodium (Lovenox) 40 mg SC DAILY [facility] Last Admin: 10/15/17 10:14 Dose: 40 mg Famotidine (Pepcid) 20 mg PO BID [facility] Last Admin: 10/15/17 17:53 Dose: 20 mg Folic Acid (Folic Acid) 1 mg PO DAILY [facility] Last Admin: 10/15/17 10:15 Dose: 1 mg Haloperidol (Haldol) 5 mg PO BID [facility] Last Admin: 10/13/17 10:13 Dose: Not Given Haloperidol Lactate (Haldol) 5 mg IM Q6 PRN PRN Reason: Agitation Last Admin: 10/08/17 09:00 Dose: 5 mg Ibuprofen (Motrin Tab) 400 mg PO Q6 PRN PRN Reason: Pain, Mild (1-3) Last Admin: 10/12/17 08:55 Dose: 400 mg Loperamide HCl (Imodium) 2 mg PO Q8 PRN PRN Reason: Diarrhea Lorazepam (Ativan) 0.5 mg IVP Q6H PRN PRN Reason: Symptoms of alcohol withdrawl Multivitamins (Hexavitamin) 1 tab PO DAILY [facility] Last Admin: 10/15/17 10:15 Dose: 1 tab Ondansetron HCl (Zofran Tab) 4 mg PO Q8 PRN PRN Reason: Nausea/Vomiting Thiamine HCl (Vitamin B1 Tab) 100 mg PO DAILY [facility] Last Admin: 10/15/17 10:15 Dose: 100 mg - Labs Labs: 10/15/17 08:18 10/15/17 08:18 PT 13.8 SECONDS (9.7-12.2) H 10/05/17 10:27 INR 1.2 10/05/17 10:27 - Additional Findings Additional findings: - Constitutional Appears: No Acute Distress - Head Exam Head Exam: ATRAUMATIC - Eye Exam Eye Exam: EOMI, Normal appearance - ENT Exam ENT Exam: Mucous Membranes Dry - Respiratory Exam Respiratory Exam: Clear to Ausculation Bilateral, NORMAL BREATHING PATTERN. absent: Rhonchi, Wheezes, Respiratory Distress - Cardiovascular Exam Cardiovascular Exam: REGULAR RHYTHM, +S1, +S2. absent: Murmur - GI/Abdominal Exam GI & Abdominal Exam: Soft, Normal Bowel Sounds. absent: Firm, Guarding, Rigid, Tenderness - Neurological Exam Neurological Exam: Alert, Awake, Oriented x3 - Psychiatric Exam Psychiatric exam: Normal Affect, Normal Mood - Skin Skin Exam: Normal Color Assessment and Plan - Assessment and Plan (Free Text) Plan: (1) Alcohol withdrawal Assessment & Plan: Psychiatry Consult, Dr. Hernandez---> Help appreciated * Management as per recommendation * changed to 1mg IV Q6H PRN (10/10/17)---> decreased to 0.5mg IV q6h PRN * Librium 25mg PO TID -----> changed to librium 10mg PO TID (10/13/17) * Imodium 2mg PO q8h prn for symptoms of diarrhea * Zofran 4mg PO Q8H prn for nausea * Haldol 5mg IM Q6 prn and Benadryl 50mg IM q6 prn * Haldol 5mg PO for agitation (Held 10/13/17) Management: -[facility] protocol; 1:1 Observation -Folic 1 tab PO daily -Thiamine 100mg PO daily -Multivitamins 1 tab po daily - Monitor withdrawal symptoms - UDS: Negative Status: Acute (2) Chest pain Assessment & Plan: Resolved EKG: Sinus Tachy with T-wave inversion lead III (09/29/17) Troponin negative X2 (09/29/17) Hold aspirin due to Thrombocytopenia Status: Acute (3) Thrombocytopenia Assessment & Plan: Resolved Continue to monitor with labs H/H stable; no sign of active bleeding Status: Acute (4) Encounter for screening and preventative care Assessment & Plan: HgbA1C: 5.4 Lipid panel: TGL: 110, Cholesterol: 237, LDL: 114 and HDL: 95 * Lifestyle modification Hepatitis and HIV: Negative RPR nonreactive Status: Acute (5) Electrolyte imbalance Assessment & Plan: Intermittent improvement Hypokalemia and hypomagnesemia * Hypomagnesemia resolved * Hypokalemia resolved * Continue to monitor with am labs Status: Acute (6) Prophylactic measure Assessment & Plan: GI: Pepcid 20mg PO BID DVT: SCDs, acute thrombocyopneia resolved, started lovenox 30mg SC daily. Will continue to monitor platelet counts with labs PT and OT Disposition: Patient need more physical and occupational therapy due to unsteady gait Status: Acute <Massiel Gomez - Last Filed: 10/16/17 15:13> Objective - Vital Signs/Intake and Output Vital Signs (last 24 hours): Temp Pulse Resp BP Pulse Ox 98.2 F 94 H 20 106/64 96 10/16/17 08:33 10/16/17 08:33 10/16/17 08:33 10/16/17 08:33 10/16/17 08:33 - Medications Medications: Current Medications Acetaminophen (Tylenol 325mg Tab) 650 mg PO Q6 PRN PRN Reason: Fever >100.4 F Chlordiazepoxide (Librium) 10 mg PO TID [facility] Last Admin: 10/16/17 14:45 Dose: Not Given Diphenhydramine HCl (Benadryl) 50 mg IM Q6 PRN PRN Reason: Agitation Last Admin: 10/08/17 02:49 Dose: 50 mg Enoxaparin Sodium (Lovenox) 40 mg SC DAILY [facility] Last Admin: 10/16/17 10:28 Dose: 40 mg Famotidine (Pepcid) 20 mg PO BID [facility] Last Admin: 10/16/17 10:31 Dose: 20 mg Folic Acid (Folic Acid) 1 mg PO DAILY [facility] Last Admin: 10/16/17 10:30 Dose: 1 mg Haloperidol (Haldol) 5 mg PO BID [facility] Last Admin: 10/13/17 10:13 Dose: Not Given Haloperidol Lactate (Haldol) 5 mg IM Q6 PRN PRN Reason: Agitation Last Admin: 10/08/17 09:00 Dose: 5 mg Ibuprofen (Motrin Tab) 400 mg PO Q6 PRN PRN Reason: Pain, Mild (1-3) Last Admin: 10/12/17 08:55 Dose: 400 mg Loperamide HCl (Imodium) 2 mg PO Q8 PRN PRN Reason: Diarrhea Lorazepam (Ativan) 0.5 mg IVP Q6H PRN PRN Reason: Symptoms of alcohol withdrawl Multivitamins (Hexavitamin) 1 tab PO DAILY [facility] Last Admin: 10/16/17 10:30 Dose: 1 tab Ondansetron HCl (Zofran Tab) 4 mg PO Q8 PRN PRN Reason: Nausea/Vomiting Thiamine HCl (Vitamin B1 Tab) 100 mg PO DAILY [facility] Last Admin: 10/16/17 10:31 Dose: 100 mg - Labs Labs: 10/16/17 08:42 10/16/17 08:42 PT 13.8 SECONDS (9.7-12.2) H 10/05/17 10:27 INR 1.2 10/05/17 10:27 Attending/Attestation - Attestation I have personally seen and examined this patient.: Yes I have fully participated in the care of the patient.: Yes I have reviewed all pertinent clinical information, including history, physical exam and plan: Yes Notes (Text): Patient was seen and examined Alert oriented x3 patient is unsteady. Unable to ambulate independent. we will continue librium. PT follow up and possible discharge tomorrow if he is more steady D/w The resident. I agree with the documentation of the resident's assessment and the plan
[2017-10-16 08:53] LABS: BASO # 0.2 K/uL (0.0-0.2); BASO % 1.4 % (0.0-2.0); EOS # 0.7 K/uL (0.0-0.7); EOS % 5.9 % (0.0-4.0); HEMOGLOBIN 13.9 g/dL (12.0-18.0); LYMPH # 1.8 K/uL (1.0-4.3); LYMPH % 14.7 % (20.0-40.0); MEAN CELL VOLUME 96.5 fL (80.0-94.0); MEAN CORPUSCULAR HEMOGLOBIN 34.1 pg (27.0-31.0); MEAN CORPUSCULAR HGB CONC 35.3 g/dL (33.0-37.0); MEAN PLATELET VOLUME 8.8 fL (7.2-11.7); MONO # 0.8 K/uL (0.0-0.8); MONO % 6.2 % (0.0-10.0); NEUT # 8.9 K/uL (1.8-7.0); NEUT % 71.8 % (50.0-75.0); NRBC % 0.1 % (0.0-2.0); RBC 4.06 Mil/uL (4.40-5.90); RED CELL DISTRIBUTION WIDTH 12.8 % (11.5-14.5); WHITE BLOOD COUNT 12.4 K/uL (4.8-10.8)
[2017-10-16 09:20] LABS: ALB/GLOB RATIO 0.9 (1.0-2.1); ALBUMIN 3.8 g/dL (3.5-5.0); ALT/SGPT 59 U/L (21-72); AST/SGOT 121 U/L (17-59); BLOOD UREA NITROGEN 9 mg/dL (9-20); CALCIUM 9.5 mg/dl (8.6-10.4); GFR AFRICAN-AMERICAN > 60; GFR NON-AFRICAN AMERICAN > 60; MAGNESIUM 2.1 mg/dL (1.6-2.3)
[2017-10-16] MEDS: Enoxaparin 40 mg Syringe SC SCH (10:28)
[2017-10-16] MEDS: Multiple Vitamins Tab PO SCH (10:30)
[2017-10-17 06:44] LABS: BASO # 0.1 K/uL (0.0-0.2); BASO % 1.1 % (0.0-2.0); EOS # 0.7 K/uL (0.0-0.7); EOS % 5.7 % (0.0-4.0); HEMOGLOBIN 13.9 g/dL (12.0-18.0); LYMPH # 1.8 K/uL (1.0-4.3); LYMPH % 14.8 % (20.0-40.0); MEAN CELL VOLUME 95.9 fL (80.0-94.0); MEAN CORPUSCULAR HEMOGLOBIN 34.1 pg (27.0-31.0); MEAN CORPUSCULAR HGB CONC 35.6 g/dL (33.0-37.0); MEAN PLATELET VOLUME 8.6 fL (7.2-11.7); MONO # 0.6 K/uL (0.0-0.8); MONO % 5.3 % (0.0-10.0); NEUT # 8.8 K/uL (1.8-7.0); NEUT % 73.1 % (50.0-75.0); NRBC % 0.1 % (0.0-2.0); RBC 4.06 Mil/uL (4.40-5.90); RED CELL DISTRIBUTION WIDTH 12.8 % (11.5-14.5)
[2017-10-17 07:05] LABS: ALBUMIN 3.9 g/dL (3.5-5.0); ALT/SGPT 74 U/L (21-72); AST/SGOT 128 U/L (17-59); BLOOD UREA NITROGEN 9 mg/dL (9-20); CALCIUM 9.2 mg/dl (8.6-10.4); GFR AFRICAN-AMERICAN > 60; GFR NON-AFRICAN AMERICAN > 60; MAGNESIUM 2.1 mg/dL (1.6-2.3)
[2017-10-17] MEDS: Multiple Vitamins Tab PO SCH (09:51)
[2017-10-17] MEDS: Enoxaparin 40 mg Syringe SC SCH (09:51)
--- NOTE | 2017-10-17 16:18 | CP.PCM.PN ---
<Janett Story E - Last Filed: 10/17/17 16:25> Subjective - Date & Time of Evaluation Date of Evaluation: 10/17/17 Time of Evaluation: 07:15 - Subjective Subjective: Medicine progress note ( Dr. Gillespie's service) Patient was seen and examined at bedside. Patient was more awake and alert today. Patient was able to ambulate with very minimal assistance. Patient is oriented to location and person. Patient show great improvement. Objective - Vital Signs/Intake and Output Vital Signs (last 24 hours): Temp Pulse Resp BP Pulse Ox 97.8 F 88 20 123/76 97 10/17/17 08:04 10/17/17 15:27 10/17/17 08:04 10/17/17 15:27 10/17/17 15:27 Intake and Output: 10/17/17 10/17/17 06:59 18:59 Intake Total 480 Balance 480 - Medications Medications: Current Medications Acetaminophen (Tylenol 325mg Tab) 650 mg PO Q6 PRN PRN Reason: Fever >100.4 F Chlordiazepoxide (Librium) 10 mg PO BID [facility] Diphenhydramine HCl (Benadryl) 50 mg IM Q6 PRN PRN Reason: Agitation Last Admin: 10/08/17 02:49 Dose: 50 mg Enoxaparin Sodium (Lovenox) 40 mg SC DAILY [facility] Last Admin: 10/17/17 09:51 Dose: 40 mg Famotidine (Pepcid) 20 mg PO BID [facility] Last Admin: 10/17/17 09:51 Dose: 20 mg Folic Acid (Folic Acid) 1 mg PO DAILY [facility] Last Admin: 10/17/17 09:51 Dose: 1 mg Haloperidol (Haldol) 5 mg PO BID [facility] Last Admin: 10/13/17 10:13 Dose: Not Given Haloperidol Lactate (Haldol) 5 mg IM Q6 PRN PRN Reason: Agitation Last Admin: 10/08/17 09:00 Dose: 5 mg Ibuprofen (Motrin Tab) 400 mg PO Q6 PRN PRN Reason: Pain, Mild (1-3) Last Admin: 10/12/17 08:55 Dose: 400 mg Loperamide HCl (Imodium) 2 mg PO Q8 PRN PRN Reason: Diarrhea Lorazepam (Ativan) 0.5 mg IVP Q6H PRN PRN Reason: Symptoms of alcohol withdrawl Multivitamins (Hexavitamin) 1 tab PO DAILY [facility] Last Admin: 10/17/17 09:51 Dose: 1 tab Ondansetron HCl (Zofran Tab) 4 mg PO Q8 PRN PRN Reason: Nausea/Vomiting Thiamine HCl (Vitamin B1 Tab) 100 mg PO DAILY [facility] Last Admin: 10/17/17 09:51 Dose: 100 mg - Labs Labs: 10/17/17 06:33 10/17/17 06:33 PT 13.8 SECONDS (9.7-12.2) H 10/05/17 10:27 INR 1.2 10/05/17 10:27 - Constitutional Appears: Well, No Acute Distress - Head Exam Head Exam: ATRAUMATIC - Eye Exam Eye Exam: EOMI, Normal appearance - ENT Exam ENT Exam: Mucous Membranes Moist - Respiratory Exam Respiratory Exam: Clear to Ausculation Bilateral, NORMAL BREATHING PATTERN. absent: Rhonchi, Wheezes, Respiratory Distress - Cardiovascular Exam Cardiovascular Exam: REGULAR RHYTHM, +S1, +S2. absent: Murmur - GI/Abdominal Exam GI & Abdominal Exam: Soft, Normal Bowel Sounds. absent: Distended, Firm, Guarding, Rigid, Tenderness - Extremities Exam Extremities Exam: Normal Inspection. absent: Calf Tenderness, Pedal Edema - Neurological Exam Neurological Exam: Alert, Awake, Oriented x3 - Psychiatric Exam Psychiatric exam: Normal Affect - Skin Skin Exam: Normal Color Assessment and Plan (1) Alcohol withdrawal Assessment & Plan: Psychiatry Consult, Dr. Hernandez---> Help appreciated * Management as per recommendation * changed to 1mg IV Q6H PRN (10/10/17)---> decreased to 0.5mg IV q6h PRN * Librium 10mg PO TID (10/13/17)---> changed to Librium 10mg PO BID * Imodium 2mg PO q8h prn for symptoms of diarrhea * Zofran 4mg PO Q8H prn for nausea * Haldol 5mg IM Q6 prn and Benadryl 50mg IM q6 prn * Haldol 5mg PO for agitation (Held 10/13/17) Management: -[facility] protocol; 1:1 Observation -Folic 1 tab PO daily -Thiamine 100mg PO daily -Multivitamins 1 tab po daily - Monitor withdrawal symptoms - UDS: Negative Status: Acute (2) Chest pain Assessment & Plan: Resolved EKG: Sinus Tachy with T-wave inversion lead III (09/29/17) Troponin negative X2 (09/29/17) Status: Acute (3) Thrombocytopenia Assessment & Plan: Resolved Continue to monitor with labs H/H stable; no sign of active bleeding Status: Acute (4) Encounter for screening and preventative care Assessment & Plan: HgbA1C: 5.4 Lipid panel: TGL: 110, Cholesterol: 237, LDL: 114 and HDL: 95 * Lifestyle modification Hepatitis and HIV: Negative RPR nonreactive Status: Acute (5) Electrolyte imbalance Assessment & Plan: Resolved Hypokalemia and hypomagnesemia * Hypomagnesemia resolved * Hypokalemia resolved * Continue to monitor with am labs Status: Acute (6) Prophylactic measure Assessment & Plan: GI: Pepcid 20mg PO BID DVT: SCDs, acute thrombocyopneia resolved, started lovenox 30mg SC daily. Thrombocytopenia stable with the use of lovenox for DVT ppx PT and OT * As per physical therapy session (10/17/17): Patient will benefit with use of cane for stability. Patient is able to correct to gait and displacement of balance during ambulation All plans and management discussed with Dr. Gillespie Status: Acute <Valentín Gillespie H - Last Filed: 10/17/17 17:03> Objective - Vital Signs/Intake and Output Vital Signs (last 24 hours): Temp Pulse Resp BP Pulse Ox 97.8 F 88 20 123/76 97 10/17/17 08:04 10/17/17 15:27 10/17/17 08:04 10/17/17 15:27 10/17/17 15:27 Intake and Output: 10/17/17 10/17/17 06:59 18:59 Intake Total 480 Balance 480 - Medications Medications: Current Medications Acetaminophen (Tylenol 325mg Tab) 650 mg PO Q6 PRN PRN Reason: Fever >100.4 F Chlordiazepoxide (Librium) 10 mg PO BID [facility] Diphenhydramine HCl (Benadryl) 50 mg IM Q6 PRN PRN Reason: Agitation Last Admin: 10/08/17 02:49 Dose: 50 mg Enoxaparin Sodium (Lovenox) 40 mg SC DAILY [facility] Last Admin: 10/17/17 09:51 Dose: 40 mg Famotidine (Pepcid) 20 mg PO BID [facility] Last Admin: 10/17/17 09:51 Dose: 20 mg Folic Acid (Folic Acid) 1 mg PO DAILY [facility] Last Admin: 10/17/17 09:51 Dose: 1 mg Haloperidol (Haldol) 5 mg PO BID [facility] Last Admin: 10/13/17 10:13 Dose: Not Given Haloperidol Lactate (Haldol) 5 mg IM Q6 PRN PRN Reason: Agitation Last Admin: 10/08/17 09:00 Dose: 5 mg Ibuprofen (Motrin Tab) 400 mg PO Q6 PRN PRN Reason: Pain, Mild (1-3) Last Admin: 10/12/17 08:55 Dose: 400 mg Loperamide HCl (Imodium) 2 mg PO Q8 PRN PRN Reason: Diarrhea Lorazepam (Ativan) 0.5 mg IVP Q6H PRN PRN Reason: Symptoms of alcohol withdrawl Multivitamins (Hexavitamin) 1 tab PO DAILY [facility] Last Admin: 10/17/17 09:51 Dose: 1 tab Ondansetron HCl (Zofran Tab) 4 mg PO Q8 PRN PRN Reason: Nausea/Vomiting Thiamine HCl (Vitamin B1 Tab) 100 mg PO DAILY [facility] Last Admin: 10/17/17 09:51 Dose: 100 mg - Labs Labs: 10/17/17 06:33 10/17/17 06:33 PT 13.8 SECONDS (9.7-12.2) H 10/05/17 10:27 INR 1.2 10/05/17 10:27 Attending/Attestation - Attestation I have personally seen and examined this patient.: Yes I have fully participated in the care of the patient.: Yes I have reviewed all pertinent clinical information, including history, physical exam and plan: Yes Notes (Text): 10/17/17 17:03 Medical attending: Patient was seen and examined by me, agrees the above note by the medical office administrator. I recall this patient from the previous week when he was admitted He is now off of the IV Ativan for some time now. He is on a very small amounts of by mouth Librium. Appreciate physical therapy seeing him today, they explained to me that he was able to walk around in the floors for quite some time on his own however at the very end he became tired and required a rolling walker When I came and saw the patient he was awake and alert. He is able to stand up very slowly from the bedside in get up and walk for us. He did not need any assistance. We will decrease his Librium again today and the plan is for us to discharge hopefully tomorrow if he is doing well Thank you very much, Valentín Gillespie
[2017-10-18 07:25] LABS: BASO # 0.1 K/uL (0.0-0.2); EOS # 0.7 K/uL (0.0-0.7); EOS % 6.9 % (0.0-4.0); HEMOGLOBIN 13.9 g/dL (12.0-18.0); LYMPH # 1.7 K/uL (1.0-4.3); LYMPH % 15.8 % (20.0-40.0); MEAN CELL VOLUME 95.5 fL (80.0-94.0); MEAN CORPUSCULAR HEMOGLOBIN 34.3 pg (27.0-31.0); MEAN CORPUSCULAR HGB CONC 35.9 g/dL (33.0-37.0); MEAN PLATELET VOLUME 8.6 fL (7.2-11.7); MONO # 0.5 K/uL (0.0-0.8); MONO % 4.7 % (0.0-10.0); NEUT # 7.6 K/uL (1.8-7.0); NEUT % 71.6 % (50.0-75.0); NRBC % 0.4 % (0.0-2.0); RBC 4.07 Mil/uL (4.40-5.90); RED CELL DISTRIBUTION WIDTH 12.8 % (11.5-14.5); WHITE BLOOD COUNT 10.7 K/uL (4.8-10.8)
[2017-10-18 07:41] LABS: ALB/GLOB RATIO 0.9 (1.0-2.1); ALBUMIN 3.7 g/dL (3.5-5.0); ALT/SGPT 65 U/L (21-72); AST/SGOT 114 U/L (17-59); BLOOD UREA NITROGEN 11 mg/dL (9-20); CALCIUM 9.4 mg/dl (8.6-10.4); GFR AFRICAN-AMERICAN > 60; GFR NON-AFRICAN AMERICAN > 60; MAGNESIUM 2.2 mg/dL (1.6-2.3)
[2017-10-18 09:22] VITALS: BP 108/72; PULSE 84; RESP 20; TEMP 98.3; O2SAT 99
[2017-10-18] MEDS: Multiple Vitamins Tab PO SCH (09:44)
[2017-10-18] MEDS: Enoxaparin 40 mg Syringe SC SCH (09:45)
--- NOTE | 2017-10-18 15:21 | CP.PCM.DIS ---
Provider - Provider Date of Admission: 10/05/17 13:42 Attending physician: Massiel Gomez MD Time Spent in preparation of Discharge (in minutes): 45 Diagnosis - Discharge Diagnosis (1) Alcohol withdrawal Status: Acute (2) Chest pain Status: Acute (3) Thrombocytopenia Status: Acute (4) Encounter for screening and preventative care Status: Acute (5) Electrolyte imbalance Status: Acute (6) Prophylactic measure Status: Acute Hospital Course - Lab Results Lab Results: Most Recent Lab Values WBC 10.7 K/uL (4.8-10.8) 10/18/17 07:08 RBC 4.07 Mil/uL (4.40-5.90) L 10/18/17 07:08 Hgb 13.9 g/dL (12.0-18.0) 10/18/17 07:08 Hct 38.9 % (35.0-51.0) 10/18/17 07:08 MCV 95.5 fL (80.0-94.0) H 10/18/17 07:08 MCH 34.3 pg (27.0-31.0) H 10/18/17 07:08 MCHC 35.9 g/dL (33.0-37.0) 10/18/17 07:08 RDW 12.8 % (11.5-14.5) 10/18/17 07:08 Plt Count 262 K/uL (130-400) 10/18/17 07:08 MPV 8.6 fL (7.2-11.7) 10/18/17 07:08 Neut % (Auto) 71.6 % (50.0-75.0) 10/18/17 07:08 Lymph % (Auto) 15.8 % (20.0-40.0) L 10/18/17 07:08 [place] % (Auto) 4.7 % (0.0-10.0) 10/18/17 07:08 Eos % (Auto) 6.9 % (0.0-4.0) H 10/18/17 07:08 Baso % (Auto) 1.0 % (0.0-2.0) 10/18/17 07:08 Neut # (Auto) 7.6 K/uL (1.8-7.0) H 10/18/17 07:08 Lymph # (Auto) 1.7 K/uL (1.0-4.3) 10/18/17 07:08 [place] # (Auto) 0.5 K/uL (0.0-0.8) 10/18/17 07:08 Eos # (Auto) 0.7 K/uL (0.0-0.7) 10/18/17 07:08 Baso # (Auto) 0.1 K/uL (0.0-0.2) 10/18/17 07:08 Neutrophils % (Manual) 86 % (50-75) H 10/07/17 07:05 Lymphocytes % (Manual) 7 % (20-40) L 10/07/17 07:05 Monocytes % (Manual) 5 % (0-10) 10/07/17 07:05 Eosinophils % (Manual) 2 % (0-4) 10/07/17 07:05 Platelet Estimate Decreased (NORMAL) L 10/07/17 07:05 RBC Morphology Normal 10/07/17 07:05 PT 13.8 SECONDS (9.7-12.2) H 10/05/17 10:27 INR 1.2 10/05/17 10:27 Sodium 141 mmol/L (132-148) 10/18/17 07:08 Potassium 4.5 mmol/L (3.6-5.2) 10/18/17 07:08 Chloride 104 mmol/L (98-107) 10/18/17 07:08 Carbon Dioxide 25 mmol/L (22-30) 10/18/17 07:08 Anion Gap 17 (10-20) 10/18/17 07:08 BUN 11 mg/dL (9-20) 10/18/17 07:08 Creatinine 0.7 mg/dL (0.8-1.5) L 10/18/17 07:08 Est GFR ( Amer) > 60 10/18/17 07:08 Est GFR (Non-Af Amer) > 60 10/18/17 07:08 POC Glucose (mg/dL) 102 mg/dL (65-110) 10/18/17 11:23 Random Glucose 93 mg/dL (75-110) 10/18/17 07:08 Hemoglobin A1c 5.4 % (4.2-6.5) 10/06/17 06:56 Calcium 9.4 mg/dl (8.6-10.4) 10/18/17 07:08 Phosphorus 4.1 mg/dL (2.5-4.5) 10/18/17 07:08 Magnesium 2.2 mg/dL (1.6-2.3) 10/18/17 07:08 Total Bilirubin 0.6 mg/dL (0.2-1.3) 10/18/17 07:08 AST 114 U/L (17-59) H 10/18/17 07:08 ALT 65 U/L (21-72) 10/18/17 07:08 Alkaline Phosphatase 138 U/L (38-126) H 10/18/17 07:08 Total Creatine Kinase 114 U/L (55-170) 10/06/17 17:11 CK-MB (Mass) 0.39 ng/mL (0.0-3.38) 10/06/17 17:11 Troponin I < 0.0120 ng/mL (0.00-0.120) 10/06/17 17:11 Total Protein 8.0 g/dL (6.3-8.3) 10/18/17 07:08 Albumin 3.7 g/dL (3.5-5.0) 10/18/17 07:08 Globulin 4.3 gm/dL (2.2-3.9) H 10/18/17 07:08 Albumin/Globulin Ratio 0.9 (1.0-2.1) L 10/18/17 07:08 Triglycerides 110 mg/dL (0-149) 10/06/17 06:56 Cholesterol 237 mg/dL (0-199) H 10/06/17 06:56 LDL Cholesterol Direct 114 mg/dL (0-129) 10/06/17 06:56 HDL Cholesterol 95 mg/dL (30-70) H 10/06/17 06:56 Lipase 106 U/L (23-300) 10/05/17 10:27 Procalcitonin 0.25 NG/ML (0.19-0.49) 10/17/17 11:15 Urine Color [place] (YELLOW) 10/05/17 11:03 Urine Clarity Clear (Clear) 10/05/17 11:03 Urine pH 5.0 (5.0-8.0) 10/05/17 11:03 Ur Specific [place] 1.023 (1.003-1.030) 10/05/17 11:03 Urine Protein 2+ mg/dL (NEGATIVE) H 10/05/17 11:03 Urine Glucose (UA) 1+ mg/dL (Normal) H 10/05/17 11:03 Urine Ketones 2+ mg/dL (NEGATIVE) H 10/05/17 11:03 Urine Blood Negative (NEGATIVE) 10/05/17 11:03 Urine Nitrate Negative (NEGATIVE) 10/05/17 11:03 Urine Bilirubin Negative (NEGATIVE) 10/05/17 11:03 Urine Urobilinogen 2.0 mg/dL (0.2-1.0) 10/05/17 11:03 Ur Leukocyte Esterase Neg [place]tha/uL (Negative) 10/05/17 11:03 Urine WBC (Auto) 2 /hpf (0-5) 10/05/17 11:03 Urine RBC (Auto) 1 /hpf (0-3) 10/05/17 11:03 Ur Squamous Epith Cells < 1 /hpf (0-5) 10/05/17 11:03 Hyaline Casts 3-5 /lpf (0-2) H 10/05/17 11:03 Urine Opiates Screen Negative (NEGATIVE) 10/05/17 15:12 Urine Methadone Screen Negative (NEGATIVE) 10/05/17 15:12 Ur Barbiturates Screen Negative (NEGATIVE) 10/05/17 15:12 Ur Phencyclidine Scrn Negative (NEGATIVE) 10/05/17 15:12 Ur Amphetamines Screen Negative (NEGATIVE) 10/05/17 15:12 U Benzodiazepines Scrn Negative (NEGATIVE) 10/05/17 15:12 U Oth Cocaine Metabols Negative (NEGATIVE) 10/05/17 15:12 U Cannabinoids Screen Negative (NEGATIVE) 10/05/17 15:12 Alcohol, Quantitative 52 mg/dl (0-10) H 10/05/17 10:27 RPR Nonreactive (NONREACTIVE) 10/06/17 06:56 Hepatitis A IgM Ab Negative (NEGATIVE) 10/06/17 06:56 Hep Bs Antigen Negative (NEGATIVE) 10/06/17 06:56 Hep B Core IgM Ab Negative (NEGATIVE) 10/06/17 06:56 Hepatitis C Antibody Negative (NEGATIVE) 10/06/17 06:56 HIV 1&2 Antibody Screen Negative (NEGATIVE) 10/06/17 06:56 - Hospital Course Hospital Course: HPI (As per admission): This a 47yo [place]er M who is presenting to the ED requesting EtOH detox; the patient states for the past 6 months he has been taking 6 shots of tequila as well as 4-6 beers daily. He has never had EtOH withdrawal seizures to his knowledge, and has never withdrawn before in the past. He states at work yesterday, he developed a nose bleed that would not stop that they sent him home for; denies any loss of consciousness, falling, any obvious signs of trauma , pain, hallucinations (visual/tactile), SOB, abdominal pain, N/V/D, dysuria/ freq/urg, or lower extremity pain swelling Hospital Course: Patient was admitted with the consideration for severe symptoms of alcohol withdrawal with agitation and hallucinations. Patient was admitted to the medical floors for closer monitoring. Psychiatry, Dr. Hernandez and Sharon was consulted, who recommended appropriate medications for alcohol detox. Over the course of admission, patient had an episode of severe agitation, aggression towards object and staff; therefore, he was placed on 1:1 observation and restrains. Patient remained clinically stable with no other acute issues and was managed on appropriate medications.Over the course of admission, patient also worked with physical therapy to gain hi strength back. Patient remained stable and was discharge with appropriate medications, instructions and a cane as per physical therapy recommendation. This is a brief summary of event. For a complete course, please refer to the medical records. Discharge Exam - Head Exam Head Exam: ATRAUMATIC - Eye Exam Eye Exam: EOMI, Normal appearance - ENT Exam ENT Exam: Mucous Membranes Moist - Respiratory Exam Respiratory Exam: Clear to PA & Lateral, NORMAL BREATHING PATTERN. absent: Rales, Rhonchi, Wheezes - Cardiovascular Exam Cardiovascular Exam: REGULAR RHYTHM, +S1, +S2 - GI/Abdominal Exam GI & Abdominal Exam: Normal Bowel Sounds, Soft. absent: Firm, Guarding - Extremities Exam Extremities exam: normal inspection - Neurological Exam Neurological exam: Alert, CN II-XII Intact - Psychiatric Exam Psychiatric exam: Normal Mood - Skin Skin Exam: Normal Color Discharge Plan - Discharge Medications Prescriptions: Folic Acid 1 mg PO DAILY 30 Days #30 tab Multivitamins [Hexavitamin] 1 tab PO DAILY 30 Days #30 tab Thiamine [Vitamin B-1] 100 mg PO DAILY 30 Days #30 tab - Follow Up Plan Condition: STABLE Disposition: HOME/ ROUTINE Instructions: Alcohol Abuse and Alcoholism (DC), Folic Acid, Thiamine, Vitamins (Multiple/Oral), Alcohol Withdrawal (ED) Additional Instructions: Please discharge patient home as per Dr. Gillespie Please start the following medications, which can also be bought of the counter 1. Folic acid 1mg PO daily 2. Multivitamins ( Hexavitamin) 1 tab PO daily 3. Thiamine 100mg PO daily Please reduce intake of foods with high cholesterol such as eggs, fatty meats, meat products, cheese and fast foods Please increase your exercise activity Please reduce your intake of alcohol as overdose and daily intake can be very detrimental to your health Please follow up with [facility] in order to establish care, Please return to the hospital if symptoms resumes Please take care
[2017-10-18] MEDS ORDERED: Pneumococcal 23-Valent Vaccine IM ONE (16:03)
[2017-10-18] MEDS ORDERED: Influenza Vaccine 60 mcg/0.5 mL SYR (4YR UP) IM ONE (16:03)
== END 2017-10-18 17:00 | disposition home or self-care (01) | DRG 895 ==
LOC: C.ER 08:12 → C.9E 13:42 → C.3T 14:47
PROVIDERS: ADMIT Internal Medicine; ATTEND Internal Medicine
PROC: HZ2ZZZZ Detoxification Services for Substance Abuse Treatment (ICD-10-PCS; principal; 2017-10-05)
PROC: HZ59ZZZ Individual Psychotherapy for Substance Abuse Treatment, Supportive (ICD-10-PCS; 2017-10-05)
PROC: HZ46ZZZ Group Counseling for Substance Abuse Treatment, Psychoeducation (ICD-10-PCS; 2017-10-05)
PROC: GZ3ZZZZ Medication Management (ICD-10-PCS; 2017-10-05)
DX: F10.230 Alcohol dependence with withdrawal, uncomplicated (principal); D69.59 Other secondary thrombocytopenia; F10.220 Alcohol dependence with intoxication, uncomplicated; F32.9 Major depressive disorder, single episode, unspecified; R04.0 Epistaxis; E87.6 Hypokalemia; R07.89 Other chest pain; R26.81 Unsteadiness on feet; Y90.2 Blood alcohol level of 40-59 mg/100 ml; Z78.1 Physical restraint status; Z91.81 History of falling